=== PATIENT | female | born 1955 | race Caucasian/White ===

== ENCOUNTER → 2016-06-28 | Outpatient (CLI) | payer OTHER ==
[~2016-06-28] MED LIST: ACET-1256 PO; ACET-24 PO; AMLO-114 PO; ASPCH81X PO; ASPEC325 PO; ASPEC81 PO; ATOR-26 PO; CLC100 PO; GADAVIST IV PRN; GLC500 PO; INSDGI SC; LISI-725 PO; LVMI SQ; MULT-506 PO; NORT10CA2 PO; NVLGIPEN SQ; ONDA8TAB6 PO; OXYSR10 PO; PLV75 PO; POLY150C4 PO; PRAM0.129 PO; PRLSR20 PO; RXC5 PO; TRAM-10 PO; TRIA37.5 PO; [UNRECOGNIZED DRUG - OTHER] PO
--- NOTE | 2016-06-28 18:41 | DIAGNOSTIC IMAGING REPORT ---
MRI OF THE BRAIN WITHOUT AND WITH IV CONTRAST CLINICAL HISTORY: Left pontine stroke COMPARISON STUDY: 02/24/2016 TECHNIQUE: MRI of the brain was performed from the vertex to the skull base utilizing various T1 and T2 weighted sequences. Following the IV administration of 9 mL of Gadavist contrast, additional enhanced images were obtained. FINDINGS: Sagittal T1, axial diffusion, proton density and T2 weighted axial, coronal FLAIR, and pre and post axial T1-weighted images were acquired. These were supplemented with post gadolinium coronal T1 weighted images. No intra or extra-axial mass lesions are visualized. There is a 3 mm focus of increased signal on diffusion-weighted imaging involving the anterior medulla. A corresponding focus of decreased signal is not identified on the ADC map. The findings may represent T2 shine through from Wallerian degeneration.. There is no evidence of ventricular dilatation. Proton density T2-weighted and FLAIR images reveal scattered foci of increased T2 signal within the white matter, likely on a small vessel basis. There is a focus of increased T2 signal within the left central catalina measuring 12 x 5 mm. The findings are consistent with the patient's previously identified left pontine infarct. 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 There is no evidence of pathologic enhancement. There are inflammatory changes within the left maxillary sinus. IMPRESSION: 1. No evidence of intracranial mass 2. No evidence of acute or subacute infarction 3. Expected evolutionary changes of the previously identified left pontine infarct. 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 06/28/2016 6:40 PM Dictated Date/Time: 06/28/2016 6:34 PM
== END | disposition home or self-care (01) ==
LOC: C.MRI 16:37
PROVIDERS: ATTEND Internal Medicine
DX: I63.50 Cerebral infarction due to unspecified occlusion or stenosis of unspecified cerebral artery (principal); I69.359 Hemiplegia and hemiparesis following cerebral infarction affecting unspecified side

== ENCOUNTER 2017-01-09 04:55 | Inpatient (IN) | payer OTHER ==
--- NOTE | 2016-12-10 10:05 | HISTORY & PHYSICAL EXAMINATION ---
DATE OF ADMISSION: 01/09/2017 PROCEDURE: Right knee replacement. HISTORY OF PRESENT ILLNESS: Shana is a pleasant 61-year-old female who presents today for preop evaluation prior to right knee replacement. She states she has been having pain in this knee for many years now, which has gradually worsened, has gotten to the point it is affecting his daily activities including walking, standing, going up and down steps. She has tried and failed conservative measures including oral anti-inflammatories, physical therapy, ambulates with a cane, sometimes walker, as well as several series of viscosupplementation including Euflexxa and Synvisc-One. She has also had previous cortisone injections. At this point in time, has failed conservative measures and would like to proceed with a right knee replacement. PAST MEDICAL HISTORY: 1. Hypertension. 2. High cholesterol. 3. History of stroke, has seen her neurologist through [facility] and has been cleared for upcoming surgery. 4. Diabetes. 5. GERD. 6. Obesity. ALLERGIES: No known drug allergies. CURRENT MEDICATIONS: 1. Zestril 20 mg daily. 2. Metformin 1000 mg b.i.d. 3. Atorvastatin 80 mg daily. 4. Dyazide 37.5/25 mg daily. 5. Norvasc 10 mg daily. 6. Nortriptyline 10 mg at night. 7. Aspirin 81 mg daily. 8. Centrum daily. 9. Tylenol as needed. 10. NovoLog sliding scale at breakfast. PAST SURGICAL HISTORY: 1. Tubal ligation. 2. Hysterectomy. FAMILY HISTORY: Noncontributory. SOCIAL HISTORY: The patient is and lives in a 2-story home, has approximately 14 stairs. She is on long-term disability. Denies a history of smoking or tobacco use. No alcohol consumption. REVIEW OF SYSTEMS: Otherwise negative. Please see HPI for pertinent positives. PHYSICAL EXAMINATION: GENERAL: Anthony 61-year-old female in no acute distress, alert and oriented x3. She is 5 feet 4 inches, weighs 198 pounds. VITAL SIGNS: Blood pressure is 134/76, pulse 90, O2 sats 98%. HEENT: Normocephalic, atraumatic. CARDIAC: Regular rate and rhythm. No murmurs or gallops appreciated. Resting pulse 90 beats per minute. LUNGS: Clear to auscultation without rales or wheeze bilaterally. ABDOMEN: Soft, nontender. Bowel sounds present. EXTREMITIES: Right lower extremity is neurovascularly intact. Calves are soft and nontender. DP pulse +2. Overall has varus alignment. Has positive crepitation with motion, range of motion is 0/5/110. Knee is ligamentously stable. Has diffuse tenderness to the knee which is greatest over the medial compartment. IMAGING: Reviewed of the right knee show findings consistent with degenerative joint disease including joint space narrowing, subchondral sclerosis, osteophyte formation noted, has varus alignment on x-ray with complete loss of medial compartment. IMPRESSION: 1. Right knee degenerative joint disease. 2. Past medical history as outlined above. PLAN: Further care discussed with patient. At this point in time, has failed conservative measures and would like to proceed with a right knee replacement. Has medical clearance as scheduled with Dr. Hairston and has been cleared by her neurologist with a history of stroke. We will plan on discharge home with home health physical therapy.
[2016-12-10 13:41] VITALS: BMI 34.0
--- NOTE | 2016-12-10 14:23 | PAT Medication Instructions ---
Service Date Dec 10, 2016. Current Home Medication List Acetaminophen (Tylenol), 500 MG PO Q6 PRN for Pain Amlodipine (Norvasc), 10 MG PO QAM Aspirin (Aspirin Chewable), 81 MG PO QAM Atorvastatin (Lipitor), 80 MG PO QAM Insulin Aspart (Novolog Flexpen), 5 UNITS SQ QAM Insulin Detemir (Levemir), 60 UNITS SQ QDD Lisinopril (Zestril), 20 MG PO QAM Metformin HCL (Glucophage *), 1,000 MG PO BID Multivitamin (Multivitamin), 1 TAB PO QAM Nortriptyline (Pamelor), 10 MG PO QAM Polysaccharide Iron Complex (Ferrex 150), 1 TAB PO QAM Pramipexole (Mirapex), 0.125-0.25 MG PO BID PRN for RESTLESS LEGS Triamterene/Hctz (Dyazide 37.5MG/25MG), 1 TAB PO BID Medication Instructions For Your Scheduled Surgery - Hold the following medications 48 hours prior to surgery: Metformin HCL (Glucophage *), 1,000 MG PO BID -The following medication may not be taken after NOON the day prior to surgery: Pramipexole (Mirapex), 0.125-0.25 MG PO BID PRN for RESTLESS LEGS - Hold the following medications the morning of surgery: Multivitamin (Multivitamin), 1 TAB PO QAM Polysaccharide Iron Complex (Ferrex 150), 1 TAB PO QAM Lisinopril (Zestril), 20 MG PO QAM Insulin Aspart (Novolog Flexpen), 5 UNITS SQ QAM Triamterene/Hctz (Dyazide 37.5MG/25MG), 1 TAB PO BID - Take the following medications the morning of surgery with a sip of water OTHERWISE NOTHING TO EAT OR DRINK AFTER MIDNIGHT: Amlodipine (Norvasc), 10 MG PO QAM Aspirin (Aspirin Chewable), 81 MG PO QAM Atorvastatin (Lipitor), 80 MG PO QAM Nortriptyline (Pamelor), 10 MG PO QAM Acetaminophen (Tylenol), 500 MG PO Q6 PRN for Pain (may take if needed up to 4 hours prior to surgery) - Take the following medications as scheduled the night before surgery: Triamterene/Hctz (Dyazide 37.5MG/25MG), 1 TAB PO BID Insulin Detemir (Levemir), 60 UNITS SQ QDD Acetaminophen (Tylenol), 500 MG PO Q6 PRN for Pain If you have any questions please call us at [phone] or [phone] or [phone]
[2016-12-10 15:18] LABS: BASO % 0.5 %; BASO ABS # 0.03 K/uL (0-0.2); COMPLETE YES; EOS % 0.6 %; HEMATOCRIT 33.4 % (37-47); IG% 0.2 %; LYMPH % 27.4 %; LYMPH ABS # 1.72 K/uL (1.2-3.4); MEAN CELL VOLUME 86.1 fL (80-100); MEAN CORPUSCULAR HEMOGLOBIN 28.4 pg (25-34); MEAN CORPUSCULAR HGB CONC 32.9 g/dl (32-36); MEAN PLATELET VOLUME 10.4 fL (7.4-10.4); MONO % 6.2 %; NEUT % 65.1 %; PLATELET COUNT 246 K/uL (130-400); RED BLOOD COUNT 3.88 M/uL (4.2-5.4); WHITE BLOOD COUNT 6.28 K/uL (4.8-10.8)
[2016-12-10 15:19] LABS: URINE APPEARANCE CLEAR (CLEAR); URINE BILIRUBIN NEG (NEG); URINE COLOR YELLOW; URINE NITRITE NEG (NEG); URINE SPECIFIC GRAVITY 1.022 (1.000-1.030); UROBILINOGEN NEG (NEG)
[2016-12-10 15:20] LABS: MANUAL MICROSCOPIC REQUIRED? NO; REVIEW REQ? NO
[2016-12-10 15:23] LABS: ESTIMATED AVERAGE GLUCOSE 206 mg/dl; HA1C FLAG Normal (Normal)
[2016-12-10 15:30] LABS: INR 0.9 (0.9-1.1); PARTIAL THROMBOPLASTIN RATIO 0.8; PROTHROMBIN TIME (PATIENT) 10.1 SECONDS (9.0-12.0)
[2016-12-10 16:22] LABS: BUN/CREATININE RATIO 25.7 (10-20); CALCIUM 9.3 mg/dl (8.5-10.1); CREATININE 1.3 mg/dl (0.60-1.20); POTASSIUM 5.1 mmol/L (3.5-5.1)
[~2017-01-09] VITALS: Ht 162.6 cm; Wt 91.0 kg
[2017-01-09] VITALS (9 sets, daily range): BP systolic 106–172; BP diastolic 67–92; PULSE 74–84; TEMP 36.3–36.9; O2SAT 91–100; Ht 162.6 cm; Wt 91.0 kg
[~2017-01-09 04:55] MED LIST changes: -ACET-24 PO; -ASPEC325 PO; -ASPEC81 PO; -CLC100 PO; -GADAVIST IV PRN; -INSDGI SC; -ONDA8TAB6 PO; -OXYSR10 PO; -PLV75 PO; -PRLSR20 PO; -RXC5 PO; -TRAM-10 PO; -[UNRECOGNIZED DRUG - OTHER] PO
[2017-01-09] MEDS ORDERED: CEFAZOLIN 2000 MG/60 ML D5W 60 ML IV SCH (06:00)
[2017-01-09] MEDS ORDERED: LACTATED RINGER'S 1000ML 1,000 ML IV SCH (06:00)
[2017-01-09] MEDS ORDERED: ROPIVACAINE 5MG/ML 30 ML 150 MG, BUPIVACAINE/EPINEPHR 0.5% MPF 30 ML, KETOROLAC TROMETH... INFIL SCH ×7 (06:00)
[2017-01-09] MEDS ORDERED: DEXAMETHASONE 4 MG TAB PO SCH (06:00)
[2017-01-09] MEDS ORDERED: LACTATED RINGER'S 1000ML IV SCH (06:00)
[2017-01-09] MEDS ORDERED: METOCLOPRAMIDE HCL 10 MG TAB PO SCH (06:00)
[2017-01-09] MEDS ORDERED: ACETAMINOPHEN 500 MG TAB PO SCH (06:00)
[2017-01-09] MEDS ORDERED: GABAPENTIN 300 MG CAP PO SCH (06:00)
[2017-01-09] MEDS ORDERED: LACTATED RINGER'S 1000ML 500 ML IV ONE (06:00)
[2017-01-09] MEDS ORDERED: CeleBREX 200 MG CAP PO SCH (06:00)
[2017-01-09] MEDS ORDERED: FAMOTIDINE 20 MG TAB PO SCH (06:00)
[2017-01-09] MEDS ORDERED: BUPIVACAINE 0.25% 30 ML VIAL ONE (06:22)
[2017-01-09] MEDS ORDERED: BUPIVACAINE 0.5 % 5 MG/1 ML PF 10ML VIAL ONE (06:22)
[2017-01-09] MEDS ORDERED: POVIDONE-IODINE OP SOLN 30 ML BTL ONE (06:28)
[2017-01-09] MEDS ORDERED: ORTHO JOINT ANESTHETIC ONE (06:28)
[2017-01-09] MEDS ORDERED: BACITRACIN 50000 UNIT VIAL ONE (06:28)
[2017-01-09] MEDS ORDERED: MIDAZOLAM HCL 1 MG/ML 2ML VIAL ONE (06:30)
[2017-01-09] MEDS ORDERED: PROPOFOL IV EMULSION 10 MG/ML 20 ML VIAL IV ONE (06:31)
[2017-01-09] MEDS ORDERED: FENTANYL CITRATE INJ 50 MCG/1 ML 2 ML VIAL ONE (06:31)
[2017-01-09] MEDS ORDERED: LIDOCAINE HCL 2% 2 ML VIAL (20MG/ML) ONE (06:31)
--- NOTE | 2017-01-09 07:01 | History & Physical Bridge Note ---
H&P Re-Evaluation Bridge Note: I have examined the patient, reviewed the History & Physical and in the interval since the performance of the History & Physical I have noted the following changes of clinical significance: No changes noted
[2017-01-09] MEDS ORDERED: ONDANSETRON INJ 2 MG/ML 2 ML VIAL ONE (07:36)
[2017-01-09] MEDS ORDERED: PHENYLEPHRINE HCL INJ 10 MG/ML VIAL ONE (07:36)
--- NOTE | 2017-01-09 08:29 | [facility] Operative Report ---
Operative Report Operative Date Jan 09, 2017. Pre-Operative Diagnosis Right Knee Degenerative Joint Disease Post-Operative Diagnosis Same as preop Procedure(s) Performed Right Total Knee Arthroplasty utilizing Nettles & Nephew journey 2 patient matched total knee arthroplasty size 4 femur 3 tibia 12 Carla [address] Brooks Marketing Underwriter Surgeon(s) Primo Butler PA-C Estimated Blood Loss 5 ml Findings Severe end-stage DJD with varus alignment varus shift and thrust bone loss tibia Nourse wants to conservative therapy Specimens A. Right Knee Bone and Tissue Complication(s) None Disposition Recovery Room / PACU Indications Severe end-stage DJD right knee with varus alignment subchondral cystic changes and tibial bone loss Description of Procedure After proper prepping and draping of the Right lower extremity anterior midline incision was made over the region of the extensor extensor mechanism after meticulous hemostasis was obtained and maintained in subcutaneous tissues a medial parapatellar incision was made The patella was subluxed lateralward the medial lateral gutter were cleaned from any hypertrophic synovitis and scar tissue of the distal femoral block was placed and the distal femoral osteotomy cut was made subsequently the chamfers anterior and posterior osteotomy cuts were made utilizing the 4-in-1 block the tibia was subsequently subluxed anteriorward medial and ateral meniscal remnants were excised in their entirety remnants of the anterior and posterior cruciate ligaments were excised in their entirety excellent exposure of the proximal tibia was obtained the tibial osteotomy guide was placed on the proximal tibial osteotomy cut was made once again the knee was irrigated with copious amounts of sterile saline solution the patella was subsequently everted lateralward thickened scar tissue around the patella was removed the patella was subsequently cut utilizing a freehand technique and was drilled prepared for final preparation and placement of patella socially flexion-extension gaps were checked and the equal and symmetric trials were placed to the appropriate femoral and tibial trials with poly-spacer being placed for equal flexion and extension gaps and full range of motion including extension to 0 and flexion to 140 the trial components after having been taken to recovery range of motion was subsequently removed meticulous hemostasis was obtained and maintained subsequently a knee block injection of joint cocktail including ropivacaine 0.5% 150 mg. Bupivacaine 0.5 % epinephrine 1-200,030 mL's toradol 30 mg dexamethasone 4 mg ketamine 10 mg clonidine 100 micrograms normal saline solution 30 mg was infiltrated into the soft tissues of the posterior knee medial lateral gutters and periosteal synovium special attention was paid to protect neurovascular structures at all times subsequently trial components having been removed the knee was irrigated with sterile saline solution. debris was removed the proximal tibia was subsequently prepared and was made ready for the placement of the tibial component tibial component was also cemented and tamped into position the femoral component was subsequently placed and cemented in the position the patellar component was subsequently cemented in position because hemostasis once again obtained and maintained wound having been thoroughly irrigated with debridement and debridement lavage was performed as well as a medial parapatellar incision closed with #1 Vicryl in interrupted fashion subcutaneous was closed with #2 Vicryl skin was closed with skin clips. PA-C was necessary for prepping and drapping as well as wound closure of deep fascia Sub cutaneous tissue and skin and was necessary for the case. A sterile compressive dressing was placed patient was taken to recovery in stable condition of report dictated by Todd I attest to the content of the Intraoperative Record and any orders documented therein. Any exceptions are noted below. I attest to the content of the Intraoperative Record and any orders documented therein. Any exceptions are noted below.
[2017-01-09] MEDS ORDERED: ALUMINUM/MAGNESIUM/SIMETH (MAALOX MAX) 30 ML UDC PO PRN (09:15)
[2017-01-09] MEDS ORDERED: SOD PHOSPHATE/SOD BIPHOSPHATE ENEMA 132 ML BTL PR PRN (09:15)
[2017-01-09] MEDS ORDERED: BISACODYL 10 MG SUPP PR PRN (09:15)
[2017-01-09] MEDS ORDERED: ONDANSETRON INJ 2 MG/ML 2 ML VIAL IV PRN (09:15)
[2017-01-09] MEDS ORDERED: MoRPHine SULFATE 2 MG/ML CARP IV PRN (09:15)
[2017-01-09] MEDS ORDERED: ZOLPIDEM TARTRATE 5 MG TAB PO PRN (09:15)
[2017-01-09] MEDS ORDERED: MAGNESIUM HYDROXIDE SUSP 30 ML UDC PO PRN (09:15)
[2017-01-09] MEDS ORDERED: PHARMACY GLYCEMIC MGMT CONSULT PRN (09:34)
--- NOTE | 2017-01-09 09:41 | Anesthesiology Progress Note ---
Anesthesia Post Op Note Date & Time Jan 09, 2017 at 09:41 Vital Signs Pain Intensity: 0 Vital Signs Past 12 Hours Date Time Temp Pulse Resp B/P (MAP) Pulse Ox O2 Delivery O2 Flow Rate FiO2 01/09/17 09:35 77 16 125/62 98 Nasal Cannula 2 01/09/17 09:25 36.6 85 16 119/63 98 Nasal Cannula 2 01/09/17 09:15 86 16 116/56 100 Oxymask 3 01/09/17 09:05 36.3 83 16 92/69 100 Oxymask 5 01/09/17 05:43 36.9 84 20 172/79 100 Room Air Notes Mental Status: alert / awake / arousable, participated in evaluation Pt Amnestic to Procedure: Yes Nausea / Vomiting: adequately controlled Pain: adequately controlled Airway Patency, RR, SpO2: stable & adequate BP & HR: stable & adequate Hydration State: stable & adequate Neuraxial Anesthesia: was administered, sensory block is resolving Anesthetic Complications: no major complications apparent
[2017-01-09] MEDS ORDERED: EpHEDrine SULFATE INJ 50 MG/ML AMP IV PRN (09:45)
[2017-01-09] MEDS ORDERED: ATROPINE SULFATE 0.1 MG/ML 5ML SYR IV PRN (09:45)
[2017-01-09] MEDS ORDERED: MoRPHine SULFATE 4 MG/ML 1 ML CARP\\VIAL IV PRN (09:45)
[2017-01-09] MEDS ORDERED: MoRPHine SULFATE 10 MG/ML CARP/VIAL IV PRN (09:45)
--- NOTE | 2017-01-09 09:47 | DIAGNOSTIC IMAGING REPORT ---
RIGHT KNEE 1 OR 2 VIEWS ROUTINE CLINICAL HISTORY: AP/LATERAL IN PACU RIGHT KNEE Right COMPARISON: None. DISCUSSION: Total right knee arthroplasty. Good contact between prosthetic and underlying bone. Expected soft tissue postoperative change IMPRESSION: Anatomic alignment status post total right knee arthroplasty The above report was generated using voice recognition software. It may contain grammatical, syntax or spelling errors. Electronically signed by: Primo Fernando M.D. 01/09/2017 9:45 AM Dictated Date/Time: 01/09/2017 9:43 AM
--- NOTE | 2017-01-09 10:12 | Pharmacy Progress Note ---
Glycemic Control Intl Consult Date of Service Jan 09, 2017. Scope Glycemic Pharmacist consulted by Kodak Butler PA-C on 01/09/17 for glycemic control and to write orders per [facility] inpatient glycemic control protocol Objective Weight (Kilograms): 91.00 Accuchecks BSG (last 24hrs): Test 01/09/17 05:19 01/09/17 09:10 Bedside Glucose 90 mg/dl (70-90) 154 mg/dl (70-90) Recent Pertinent Medications Outpatient Anti-diabetic Regimen: * Levemir 60 units with dinner + Novolog 5 units with breakfast * Metformin 1000 mg PO BID * A1c = 8.8 % 12/10/16 Risk Factors for Insulin Resistance: * Steroids: Orthomix + Dexamethasone 8 mg PO pre-op * Infection: Ancef bhumi-op * Recent Surgery: POD #0 s/p R-TKA * Diet: T2DM Assessment & Plan ASSESSMENT: * 89 yr old T2DM female admitted for R-TKA. * Home regimen consists of metformin + 65 units of insulin (mostly basal insulin - 60 units) with less than adequate control evidenced by A1c of 8.8% * Will re-distribute regimen to 50% basal/50% bolus * 65 units -> 32 units of basal, CF/CR 25/8 * will slightly increase basal insulin for POD #0 * will tighten CF/CR for POD #0 since patient received pre op steroid * ADA & AACE recommend a goal blood sugar range 140-180 mg/dl for the majority of critically ill & non-critically ill patients. However, more stringent targets may be selected in individual cases. Will utilize more stringent goal of 110-140mg/dl based on patient age & comorbidities. Additionally, tighter glycemic control is warranted to facilitate wound/infection healing. PLAN FOR INPATIENT GLYCEMIC CONTROL: * Holding outpatient oral diabetes medications * Lantus 35-40 units SQ with dinner * 35 units for BSG less than 140 mg/dL * 40 units for BSG 140 mg/dL or more * Correctional Insulin with NOVOLOG per scale ACHS * Goal Range: Low 110 mg/dL - High 140 mg/dL * Correction Factor: 20 mg/dL/unit * Nutritional / Prandial insulin per carb ratio of 1 unit per 6 grams CHO consumed * add overnight checks with coverage at 00 and 04 * Please note that the plan above was derived based on current level of insulin resistance and hospital stress. These recommendations are appropriate for inpatient admission only. Plan of care upon discharge will need to be reassessed to avoid potential outpatient hypo/hyperglycemia. Thank you.
[2017-01-09] MEDS ORDERED: DEXTROSE 50% 50 ML SYR IV PRN (11:30)
[2017-01-09] MEDS ORDERED: GLUCAGON FOR INJ 1 MG VIAL SQ PRN (11:30)
[2017-01-09] MEDS ORDERED: GLUCOSE 10 TABS/TUBE PO PRN (11:30)
[2017-01-09] MEDS ORDERED: GLUCOSE 40% GEL 15 GM TUBE PO PRN (11:30)
[2017-01-09] MEDS: SODIUM CHLORIDE 0.9% 1000ML 1,000 ML IV SCH ×2 (12:50→18:45)
[2017-01-09] MEDS: INSULIN ASPART 100 UNITS/ML 3 ML PEN SC SCH ×3 (12:53→21:59)
[2017-01-09] MEDS: ACETAMINOPHEN 500 MG TAB PO SCH ×2 (14:02→21:58)
[2017-01-09] MEDS: CEFAZOLIN IV 2,000 MG in DEXTROSE 5% 50ML 50 ML IV SCH ×2 (14:38→21:57)
[2017-01-09] MEDS ORDERED: INFLUENZA ADMINISTRATION CHARGE ONE (14:45)
[2017-01-09] MEDS ORDERED: INFLUENZA VIRUS QUAD VACCINE 0.5 ML SYR IM. ONE (14:45)
[2017-01-09] MEDS: OXYCODONE HCL IR 5 MG TAB (IMMEDIATE RELEASE) PO PRN (14:52)
[2017-01-09] MEDS: INSULIN GLARGINE SOLOSTAR 100 UNITS/ML 3 ML PEN SC SCH (18:42)
[2017-01-09] MEDS: SENNA 8.6 MG TAB PO SCH (20:35)
[2017-01-09] MEDS: OXYCODONE HCL 10 MG TABCR (OXYCONTIN) PO SCH (20:35)
[2017-01-09] MEDS: DOCUSATE SODIUM 100 MG CAP PO SCH (20:36)
[2017-01-09] MEDS: ASPIRIN 81 MG ECTAB PO SCH (20:36)
[2017-01-09] MEDS: PRAMIPEXOLE DIHYDROCHLORIDE 0.25MG TAB PO PRN (21:57)
[2017-01-10] MEDS: INSULIN ASPART 100 UNITS/ML 3 ML PEN SC SCH ×7 (00:04→23:38)
[2017-01-10] MEDS: OXYCODONE HCL IR 5 MG TAB (IMMEDIATE RELEASE) PO PRN ×5 (01:21→21:01)
[2017-01-10] MEDS ORDERED: INSULIN ASPART 100 UNITS/ML 3 ML PEN SC SCH (02:00)
[2017-01-10 04:00] VITALS: BP 125/62; PULSE 68; TEMP 36.5; O2SAT 100
[2017-01-10] MEDS: ACETAMINOPHEN 500 MG TAB PO SCH ×3 (05:01→21:39)
[2017-01-10] MEDS: SODIUM CHLORIDE 0.9% 1000ML 1,000 ML IV SCH (05:23)
[2017-01-10 06:36] LABS: HEMATOCRIT 25.7 % (37-47); MEAN CELL VOLUME 86.5 fL (80-100); MEAN CORPUSCULAR HEMOGLOBIN 27.6 pg (25-34); MEAN CORPUSCULAR HGB CONC 31.9 g/dl (32-36); PLATELET COUNT 266 K/uL (130-400); RED BLOOD COUNT 2.97 M/uL (4.2-5.4); WHITE BLOOD COUNT 11.75 K/uL (4.8-10.8)
[2017-01-10 06:47] LABS: PROTHROMBIN TIME (PATIENT) 10.5 SECONDS (9.0-12.0)
[2017-01-10 07:21] LABS: CALCIUM 8.6 mg/dl (8.5-10.1); CREATININE 1.3 mg/dl (0.60-1.20); POTASSIUM 5.4 mmol/L (3.5-5.1)
--- NOTE | 2017-01-10 08:21 | Orthopedic Progress Note ---
Orthopedic Progress Note Date of Service Jan 10, 2017. Subjective Post OP Day: 1 (s/p Right TKA) Reports: feeling well, pain controlled w PO medications, Denies: complaints, chest pain, SOB, nausea / vomiting, light headedness, calf pain Objective calves soft nontender, N/V intact, capillary refill less than 2 sec., dressing C /D/I, A&O x3, toes mobile, hemovac drainage (185cc/ 8 hours) Date Time Temp Pulse Resp B/P (MAP) Pulse Ox O2 Delivery O2 Flow Rate FiO2 01/10/17 04:00 36.5 68 16 125/62 (83) 100 Room Air 01/10/17 00:03 Room Air 01/09/17 23:00 36.6 75 18 131/69 (89) 96 Room Air 01/09/17 19:23 36.7 74 18 127/68 (87) 94 Room Air 01/09/17 15:36 36.3 79 18 153/78 (103) 91 Nasal Cannula 01/09/17 15:30 Room Air 01/09/17 13:05 36.4 78 18 129/82 (98) 99 Nasal Cannula 2.0 01/09/17 12:08 36.3 77 18 106/68 (81) 98 Nasal Cannula 2.0 01/09/17 11:08 36.7 78 19 129/78 (95) 97 Nasal Cannula 2.0 01/09/17 10:48 36.4 76 18 138/92 (107) 95 Nasal Cannula 2.0 01/09/17 10:15 36.7 82 16 115/67 (83) 97 Nasal Cannula 2.0 01/09/17 10:15 Nasal Cannula 2.0 01/09/17 10:15 Nasal Cannula 2.0 97 01/09/17 10:00 83 16 99/65 99 Nasal Cannula 2 01/09/17 09:45 81 16 119/67 97 Nasal Cannula 2 01/09/17 09:35 77 16 125/62 98 Nasal Cannula 2 01/09/17 09:25 36.6 85 16 119/63 98 Nasal Cannula 2 01/09/17 09:15 86 16 116/56 100 Oxymask 3 01/09/17 09:05 36.3 83 16 92/69 100 Oxymask 5 Laboratory Results 24 Hours: Test 01/10/17 06:04 Hematocrit 25.7 % Hemoglobin 8.2 g/dL Prothromb Time International Ratio 1.0 Prothrombin Time 10.5 SECONDS Assessment & Plan Assessment: POD #1 s/p Right TKA -pt/ot -dvt proph with DIPESH/SCD/ASA -plan on dc home with HHPT when stable 1. Hypertension. 2. High cholesterol. 3. History of stroke, on ASA at home 4. Diabetes. 5. GERD. 6. Obesity. Discharge Planning Discharge Planning: home with home health DVT Prophylaxis: TEDs, SCDs, ASA Therapy: Physical Therapy
--- NOTE | 2017-01-10 08:22 | Discharge Instructions ---
Discharge Instructions Date of Service Jan 10, 2017. Admission Reason for Admission: Right Knee Degenerative Joint Disease Discharge Discharge Diagnosis / Problem: Right TKA Discharge Goals Goal(s): Decrease discomfort, Improve function, Increase independence Activity Recommendations Activity Limitations: as noted below Weightbearing Status: Right weightbearing (as tolerated) . Instructions / Follow-Up Instructions / Follow-Up ACTIVITY RECOMMENDATIONS: SELF CARE INSTRUCTIONS AFTER TOTAL KNEE REPLACEMENT A. You may need to continue a physical therapy program after discharge from the hospital. There are several options available to you. Your doctor will assist you in selecting the best one for you. 1. An out-patient facility 2 to 3 times a week for therapy or home therapy. 2. Continue working on all exercises taught to you in the hospital. Your goals should be to increase bending of your knee to 90 degrees and beyond and to fully straighten your knee. B. You may progress at your own pace from walking with a walker or crutches to a cane; then to no assistive devices. C. Make walking a part of your daily routine. Be up as much as comfortable with rest periods throughout the day. Rest with leg elevation is very important. Use the ice wrap frequently for the first 3-4 weeks. D. There are no restrictions on activities. You may ride in a car, shop, participate in souvenir street vendor and all social activities. E. Wear the long elastic stockings (DIPESH hose) 20 hours a day for 2 weeks after surgery. They can be removed several times a day for laundering and for a bath. F. You may shower, no tub baths until cleared by your doctor. SPECIAL CARE INSTRUCTIONS: VERY IMPORTANT TO READ AND REVIEW A. There are a few signs you need to watch for after you are home. Call [facility] if you notice any of the followin. Increased severe knee pain. Some pain is expected especially when you exercise. 2. Increased swelling in your leg or knee; pain or swelling of the calf muscle in either lower leg. 3. Any fluid drainage from the incision. 4. Shortness of breath or chest pain. B. Please call [facility] at if you have any concerns or questions about your operation or recovery. The doctor or his nurse will return your call promptly. C. You must take antibiotics before dental work, bladder, bowel or other surgery. Your doctor will provide you with a permanent care to carry describing this precaution. IMPORTANT: * REMEMBER TO TAKE ASPIRIN, 81 MG, TWICE DAILY FOR 4 WEEKS UNLESS OTHERWISE DIRECTED. THIS IS YOUR BLOOD THINNER. * HIGH RISK PATIENTS MAY BE PRESCRIBED A STRONGER BLOOD THINNER. THIS WILL BE PROVIDED AT DISCHARGE. * CALL IF INCREASED PAIN, REDNESS, DRAINAGE OR FEVER GREATER THAT 101. * WEAR DIPESH HOSE 20 HOURS PER DAY FOR 2 WEEKS. * DERMABOND Prineo- This is a mesh tape dressing that is covered with glue. It should remain in place until the incision is properly healed, usually 10-14 days. This dressing is designed to naturally slough off. You may trim the excess mesh tape as it peels off. Incision may be briefly wet in a shower. Dry immediately by blotting with a clean, dry towel. Do not bath or swim until instructed by your doctor. Do not scratch, rub, or pick at the dressing. Do not apply any topical ointments or lotions until dressing is completely removed and/or instructed by your doctor. There may be a small piece of suture material at one end of your incision. Do not pull or trim this. If it is bothersome or catching on clothing, you may cover it with a band-aid. FOLLOW UP VISIT: If appointment is not already scheduled: Please call [facility] to make a follow-up appointment for 2 weeks after your surgery at . Current Hospital Diet Patient's current hospital diet: Diabetes Type 2 Diet Discharge Diet Recommended Diet: Diabetes Type 2 Diet Procedures Procedures Performed: Right Total Knee Arthroplasty utilizing Nettles & Nephew journey 2 patient matched total knee arthroplasty size 4 femur 3 tibia 12 Carla 32 oval patella Pending Studies Studies pending at discharge: no Laboratory Results Hemoglobin A1c Test 12/10/16 15:04 Range/Units Estimated Average Glucose 206 mg/dl Hemoglobin A1c 8.8 H 4.5-5.6 % Medical Emergencies . Who to Call and When: Medical Emergencies: If at any time you feel your situation is an emergency, please call 911 immediately. . Non-Emergent Contact Non-Emergency issues call your: Primary Care Provider, Surgeon . "Provider Documentation" section prepared by Primo Butler. . VTE Core Measure Inpt VTE Proph given/why not?: Other Anticoagulation (ASA 81mg po bid x 1 month ), T.E.D. Stockings, SCD's [place] Drug Monitoring Program Search Results: patient reviewed within database, no issues identified
[2017-01-10] MEDS ORDERED: INSULIN GLARGINE SOLOSTAR 100 UNITS/ML 3 ML PEN SC SCH (09:00)
[2017-01-10] MEDS: ASPIRIN 81 MG ECTAB PO SCH ×2 (09:10→21:02)
[2017-01-10] MEDS: IRON COMPLEX POLYSACCHARIDE W/VIT C 150 MG CAP PO SCH (09:10)
[2017-01-10] MEDS: PANTOprazole SOD 40 MG TAB PO SCH (09:10)
[2017-01-10] MEDS: ATORVASTATIN 40 MG TAB PO SCH (09:11)
[2017-01-10] MEDS: NORTRIPTYLINE HCL 10 MG CAP PO SCH (09:11)
[2017-01-10] MEDS: DOCUSATE SODIUM 100 MG CAP PO SCH ×2 (09:11→21:02)
[2017-01-10] MEDS: AMLODIPINE BESYLATE 5 MG TAB PO SCH (09:11)
[2017-01-10] MEDS: MULTIVITAMIN TAB PO SCH (09:11)
[2017-01-10] MEDS: OXYCODONE HCL 10 MG TABCR (OXYCONTIN) PO SCH ×2 (09:15→21:00)
--- NOTE | 2017-01-10 09:36 | Anesthesiology Progress Note ---
Anesthesia Post Op Note Date & Time Jan 10, 2017 at 09:35 Vital Signs Pain Intensity: 7.0 Vital Signs Past 12 Hours Date Time Temp Pulse Resp B/P (MAP) Pulse Ox O2 Delivery O2 Flow Rate FiO2 01/10/17 04:00 36.5 68 16 125/62 (83) 100 Room Air 01/10/17 00:03 Room Air 01/09/17 23:00 36.6 75 18 131/69 (89) 96 Room Air Notes Mental Status: alert / awake / arousable, participated in evaluation Pt Amnestic to Procedure: Yes Nausea / Vomiting: adequately controlled Pain: adequately controlled Airway Patency, RR, SpO2: stable & adequate BP & HR: stable & adequate Hydration State: stable & adequate Neuraxial Anesthesia: sensory block resolved Anesthetic Complications: no major complications apparent
[2017-01-10 10:01] VITALS: BP 143/71; PULSE 73; O2SAT 100
--- NOTE | 2017-01-10 10:39 | Pharmacy Progress Note ---
Glycemic Control Progress Note Date of Service Jan 10, 2017. Scope Glycemic Pharmacist consulted for glycemic control to write orders per [facility] inpatient glycemic control protocol. Objective Accuchecks BSG (last 24hrs): Test 01/09/17 11:05 01/10/17 04:24 01/10/17 06:04 01/10/17 07:57 Bedside Glucose 209 mg/dl (70-90) 134 mg/dl (70-90) 233 mg/dl (70-90) Random Glucose 137 mg/dl (70-99) Recent Pertinent Medications Risk Factors for Insulin Resistance: * Steroids: Orthomix + Dexamethasone 8 mg PO pre-op * Infection: Ancef bhumi-op * Recent Surgery: POD #1 s/p R-TKA * Diet: T2DM Outpatient Anti-Diabetic Meds * Levemir 60 units with dinner + Novolog 5 units with breakfast * Metformin 1000 mg PO BID * A1c = 8.8 % 12/10/16 Assessment & Plan ASSESSMENT: * Please see 01/09/17 note for background, in short: * 89 yr old T2DM female POD#1 s/p R-TKA. * Patient received 77 units of insulin since surgery * 40 units of basal * 37 units of correctional/prandial * BSGs ranged from 90 - 338 mg/dL over the past 24 hours * Changes needed to insulin regimen: * Fasting BSG of 233 mg/dL is above goal. Will give additional Levemir this morning, then resume HS dosing since this is how he takes basal insulin at home. Continue to titrate based on BSG (scale increased 12.5-25%). * Prandial BSGs elevated. Tighten CF. PLAN FOR INPATIENT GLYCEMIC CONTROL: * Resume Metformin 1000 mg PO BID this evening * Basal insulin - increase * Levemir 10 units SQ this am * Levemir 35-40 units SQ with dinner * 35 units for BSG less than 140 mg/dL * 40 units for BSG 140 mg/dL or more * Correctional Insulin with NOVOLOG per scale ACHS - tighten * Goal Range: Low 110 mg/dL - High 140 mg/dL * Correction Factor: 18 mg/dL/unit * Nutritional / Prandial insulin per carb ratio of 1 unit per 6 grams CHO consumed * Continue overnight checks with coverage for tight control in post-op setting DISCHARGE RECOMMENDATIONS: * A1c of 8.8% (12/10/16) is less than adequate * Home insulin regimen is comprised of mostly basal insulin (60 units Lantus, 5 units Novolog with breakfast) * Consider adding Novolog with lunch and dinner also * Please note that the plan above was derived based on current level of insulin resistance and hospital stress. These recommendations are appropriate for inpatient admission only. Plan of care upon discharge will need to be reassessed to avoid potential outpatient hypo/hyperglycemia. Thank you.
[2017-01-10 11:47] VITALS: BP 151/72; PULSE 66; TEMP 36.7; O2SAT 100
[2017-01-10 15:17] VITALS: BP 100/70; PULSE 79; TEMP 36.7; O2SAT 100
[2017-01-10] MEDS: INSULIN GLARGINE SOLOSTAR 100 UNITS/ML 3 ML PEN SC SCH (18:26)
[2017-01-10] MEDS: METFORMIN HCL 500 MG TAB PO SCH (18:27)
[2017-01-10] MEDS: PRAMIPEXOLE DIHYDROCHLORIDE 0.25MG TAB PO PRN (21:01)
[2017-01-10] MEDS: SENNA 8.6 MG TAB PO SCH (21:03)
[2017-01-10 22:44] VITALS: BP 148/66; PULSE 91; TEMP 36.6; O2SAT 97
[2017-01-11] MEDS: OXYCODONE HCL IR 5 MG TAB (IMMEDIATE RELEASE) PO PRN ×3 (01:57→10:27)
[2017-01-11] MEDS: INSULIN ASPART 100 UNITS/ML 3 ML PEN SC SCH ×2 (04:00→08:00)
[2017-01-11] MEDS: ACETAMINOPHEN 500 MG TAB PO SCH (05:42)
--- NOTE | 2017-01-11 07:04 | Orthopedic Progress Note ---
Orthopedic Progress Note Date of Service Jan 11, 2017. Subjective Post OP Day: 2 Reports: feeling well, pain controlled w PO medications, Denies: complaints, chest pain, SOB, nausea / vomiting, light headedness, calf pain Objective calves soft nontender, N/V intact, capillary refill less than 2 sec., incision C /D/I, A&O x3, toes mobile Date Time Temp Pulse Resp B/P (MAP) Pulse Ox O2 Delivery O2 Flow Rate FiO2 01/10/17 23:15 Room Air 01/10/17 22:44 36.6 91 16 148/66 (93) 97 Room Air 01/10/17 15:20 Room Air 01/10/17 15:17 36.7 79 18 100/70 (80) 100 Room Air 01/10/17 11:47 36.7 66 18 151/72 (98) 100 Room Air 01/10/17 10:01 73 100 01/10/17 07:20 Room Air Assessment & Plan Assessment: POD #2 s/p Right TKA -pt/ot -dvt proph with DIPESH/SCD/ASA -plan on dc home with HHPT when stable, likely after PT today H/H stable, denies LH, dizzy 1. Hypertension. 2. High cholesterol. 3. History of stroke, on ASA at home 4. Diabetes. 5. GERD. 6. Obesity. Discharge Planning Discharge Planning: home with home health DVT Prophylaxis: TEDs, SCDs, ASA Therapy: Physical Therapy
[2017-01-11] MEDS ORDERED: ASPEC81 PO (07:07)
[2017-01-11] MEDS ORDERED: OXYSR10 PO (07:07)
[2017-01-11] MEDS ORDERED: RXC5 PO (07:07)
[2017-01-11] MEDS ORDERED: CLC100 PO (07:07)
[2017-01-11] MEDS ORDERED: ACET-24 PO (07:07)
[2017-01-11] MEDS ORDERED: ONDA8TAB6 PO (07:07)
--- NOTE | 2017-01-11 07:40 | Discharge Summary ---
Orthopedic Discharge Summary Admission Date/Reason Jan 09, 2017 at 06:45 Right Knee Degenerative Joint Disease. Discharge Date/Disposition Jan 11, 2017 Home with services Diagnosis Principal Diagnosis: right knee osteoarthritis Procedure(s) Performed Right Total Knee Arthroplasty utilizing Nettles & Nephew journey 2 patient matched total knee arthroplasty size 4 femur 3 tibia 12 Carla 32 oval patella Consultations NONE Medication Reconciliation New Medications: Ondansetron Hcl (Zofran) 8 Mg Tab 8 MG PO Q8 PRN for Nausea, #20 TAB Acetaminophen (Sb Non-Aspirin Extra Stre) 500 Mg Tab 1000 MG PO Q8H, #63 TAB Aspirin (Aspirin EC Low Dose) 81 Mg Ectab 81 MG PO BID for 30 Days, #60 TAB Docusate Sodium (Docusate Sodium) 100 Mg Cap 100 MG PO BID for 10 Days, #20 CAP Oxycodone HCl (Oxycontin) 10 Mg Tabcr 10 MG PO Q12, #20 Oxycodone HCl (Oxycodone HCl) 5 Mg Tab 5-10 MG PO Q4H PRN for Pain, #60 TAB Continued Medications: Amlodipine (Norvasc) 10 Mg Tab 10 MG PO QAM, TAB Atorvastatin (Lipitor) 80 Mg Tab 80 MG PO QAM Insulin Aspart (Novolog Flexpen) 100 Units/Ml Inj 5 UNITS SQ QAM Insulin Detemir (Levemir) 100 Units/Ml Inj 60 UNITS SQ QDD Lisinopril (Zestril) 20 Mg Tab 20 MG PO QAM, TAB Metformin HCL (Glucophage *) 1,000 Mg Tab 1000 MG PO BID, 0 Refills Multivitamin (Multivitamin) Tab 1 TAB PO QAM, TAB Nortriptyline (Pamelor) 10 Mg Cap 10 MG PO QAM, 0 Refills Polysaccharide Iron Complex (Ferrex 150) 150 Mg Cap 1 TAB PO QAM Pramipexole (Mirapex) 0.125 Mg Tab 0.125-0.25 MG PO BID PRN for RESTLESS LEGS TAKE 1 IN am AND 1OR 2 AT NIGHT Triamterene/Hctz (Dyazide 37.5MG/25MG) Cap 1 TAB PO BID, CAP Discontinued Medications: Acetaminophen (Tylenol) 500 Mg Tab 500 MG PO Q6 PRN for Pain, TAB Aspirin (Aspirin Chewable) 81 Mg Chew 81 MG PO QAM Admission Physical Exam As per Admitting History & Physical. Hospital Course Patient was a same day admission after undergoing a successful right TKA. she tolerated the procedure well. Post-operatively, her activity was progressed and well tolerated. Please refer to daily progress notes and PT notes for complete details. After exam on 01/11/17, patient felt to be stable for discharge home with HHPT. Patient will f/u in the office in 2 weeks for further evaluation including x-rays and incision check, sooner if having any issues or concerns. Below are pertinent labs/studies during their hospital stay: Last Resulted CBC 01/10/17 06:04 Last Resulted BMP 01/10/17 06:04 Last Vital Signs Documentation Date Time Temp Pulse Resp B/P (MAP) Pulse Ox O2 Delivery O2 Flow Rate FiO2 01/10/17 23:15 Room Air 01/10/17 22:44 36.6 91 16 148/66 (93) 97 01/09/17 13:05 2.0 01/09/17 10:15 97 Discharge Instructions ACTIVITY RECOMMENDATIONS: SELF CARE INSTRUCTIONS AFTER TOTAL KNEE REPLACEMENT A. You may need to continue a physical therapy program after discharge from the hospital. There are several options available to you. Your doctor will assist you in selecting the best one for you. 1. An out-patient facility 2 to 3 times a week for therapy or home therapy. 2. Continue working on all exercises taught to you in the hospital. Your goals should be to increase bending of your knee to 90 degrees and beyond and to fully straighten your knee. B. You may progress at your own pace from walking with a walker or crutches to a cane; then to no assistive devices. C. Make walking a part of your daily routine. Be up as much as comfortable with rest periods throughout the day. Rest with leg elevation is very important. Use the ice wrap frequently for the first 3-4 weeks. D. There are no restrictions on activities. You may ride in a car, shop, participate in facility attendant and all social activities. E. Wear the long elastic stockings (DIPESH hose) 20 hours a day for 2 weeks after surgery. They can be removed several times a day for laundering and for a bath. F. You may shower, no tub baths until cleared by your doctor. SPECIAL CARE INSTRUCTIONS: VERY IMPORTANT TO READ AND REVIEW A. There are a few signs you need to watch for after you are home. Call [facility] if you notice any of the followin. Increased severe knee pain. Some pain is expected especially when you exercise. 2. Increased swelling in your leg or knee; pain or swelling of the calf muscle in either lower leg. 3. Any fluid drainage from the incision. 4. Shortness of breath or chest pain. B. Please call [facility] at if you have any concerns or questions about your operation or recovery. The doctor or his nurse will return your call promptly. C. You must take antibiotics before dental work, bladder, bowel or other surgery. Your doctor will provide you with a permanent care to carry describing this precaution. IMPORTANT: * REMEMBER TO TAKE ASPIRIN, 81 MG, TWICE DAILY FOR 4 WEEKS UNLESS OTHERWISE DIRECTED. THIS IS YOUR BLOOD THINNER. * HIGH RISK PATIENTS MAY BE PRESCRIBED A STRONGER BLOOD THINNER. THIS WILL BE PROVIDED AT DISCHARGE. * CALL IF INCREASED PAIN, REDNESS, DRAINAGE OR FEVER GREATER THAT 101. * WEAR DIPESH HOSE 20 HOURS PER DAY FOR 2 WEEKS. * DERMABOND Prineo- This is a mesh tape dressing that is covered with glue. It should remain in place until the incision is properly healed, usually 10-14 days. This dressing is designed to naturally slough off. You may trim the excess mesh tape as it peels off. Incision may be briefly wet in a shower. Dry immediately by blotting with a clean, dry towel. Do not bath or swim until instructed by your doctor. Do not scratch, rub, or pick at the dressing. Do not apply any topical ointments or lotions until dressing is completely removed and/or instructed by your doctor. There may be a small piece of suture material at one end of your incision. Do not pull or trim this. If it is bothersome or catching on clothing, you may cover it with a band-aid. FOLLOW UP VISIT: If appointment is not already scheduled: Please call [facility] to make a follow-up appointment for 2 weeks after your surgery at .
[2017-01-11 07:42] VITALS: BP 150/73; PULSE 86; TEMP 36.8; O2SAT 98
[2017-01-11 08:37] VITALS: BP 150/73; PULSE 86; TEMP 36.8; O2SAT 98
[2017-01-11] MEDS: PANTOprazole SOD 40 MG TAB PO SCH (09:14)
[2017-01-11] MEDS: AMLODIPINE BESYLATE 5 MG TAB PO SCH (09:14)
[2017-01-11] MEDS: MULTIVITAMIN TAB PO SCH (09:14)
[2017-01-11] MEDS: NORTRIPTYLINE HCL 10 MG CAP PO SCH (09:14)
[2017-01-11] MEDS: ASPIRIN 81 MG ECTAB PO SCH (09:14)
[2017-01-11] MEDS: DOCUSATE SODIUM 100 MG CAP PO SCH (09:14)
[2017-01-11] MEDS: ATORVASTATIN 40 MG TAB PO SCH (09:14)
[2017-01-11] MEDS: METFORMIN HCL 500 MG TAB PO SCH (09:15)
[2017-01-11] MEDS: IRON COMPLEX POLYSACCHARIDE W/VIT C 150 MG CAP PO SCH (09:15)
[2017-01-11] MEDS: OXYCODONE HCL 10 MG TABCR (OXYCONTIN) PO SCH (09:20)
== END 2017-01-11 10:50 | disposition home health service (06) | DRG 470 ==
LOC: C.ACU 04:55 → C.3E 06:45 → EDBEDREQ 09:28 → ENRESERV 09:49
PROVIDERS: ADMIT Orthopaedic Surgery; ATTEND Orthopaedic Surgery
PROC: 0SRC0J9 Replacement of Right Knee Joint with Synthetic Substitute, Cemented, Open Approach (ICD-10-PCS; principal; 2017-01-09 07:00)
DX: M17.11 Unilateral primary osteoarthritis, right knee (principal); I12.9 Hypertensive chronic kidney disease with stage 1 through stage 4 chronic kidney disease, or unspecified chronic kidney disease; E66.9 Obesity, unspecified; E11.9 Type 2 diabetes mellitus without complications; K21.9 Gastro-esophageal reflux disease without esophagitis; N18.3 Chronic kidney disease, stage 3 (moderate); E78.00 Pure hypercholesterolemia, unspecified; R20.0 Anesthesia of skin; G50.0 Trigeminal neuralgia; G25.81 Restless legs syndrome; Z79.899 Other long term (current) drug therapy; Z79.84 Long term (current) use of oral hypoglycemic drugs; Z68.34 Body mass index [BMI] 34.0-34.9, adult; Z86.73 Personal history of transient ischemic attack (TIA), and cerebral infarction without residual deficits; Z79.82 Long term (current) use of aspirin; Z79.4 Long term (current) use of insulin

== ENCOUNTER 2018-04-29 05:16 | Inpatient (IN) ==
--- NOTE | 2018-03-31 08:43 | History & Physical Report ---
Date of Service March 31, 2018 Assessment & Plan (1) Arthritis of knee, left: Risks and benefits of procedure discussed in detail today, patient would like to proceed with a Left TKA @ [facility] as scheduled. will obtain medical clearance prior to surgery as well as obtain PATs at [facility]. Patient is on chronic coumadin, will need bridged with lovenox pre-op, instructions have been given to patient by the coumadin clinic, f/u 2 weeks post op for routine post- operative care and xray, sooner if having any problems. will make arrangements for HHPT at the time of discharge. History of Present Illness Chief Complaint: left knee pain Primary Care Provider: Gaby Vela DO Ms Mata is a 62 year old female who is here for a follow up of left knee pain , presents for pre-op evaluation prior to left total knee replacement on 04/29/[address] Brooks. She states that the symptoms have been chronic non-traumatic. The symptoms occur intermittently. The problem is unchanged. Currently the patient states that the symptoms are moderate-severe. The pain is described as aching, dull, throbbing and discomforting. The symptoms occur intermittently. She rates her current pain as 4/10. The symptoms are aggravated by ascending stairs, descending stairs, walking and weather changes. Shana states that the symptoms are relieved by no specific activity. In addition to left knee pain the patient is also experiencing limping, crepitus, stiffness and weakness. The patient has had a previous MRI. Patient is currently taking Lovenox until due to having colonoscopy and endoscopy tomorrow on 04/01/18 then she will resume her Coumadin. Patient has taken NSAIDS with little to no relief. has also had previous cortisone injections with no relief. Allergies Allergy/AdvReac Type Severity Reaction Status Date / Time celecoxib Allergy Unknown due to Verified 08/16/17 12:21 stroke unable to take NSAIDS (Non-Steroidal Allergy Unknown unable to Verified 08/16/17 12:21 Anti-Inflamma take due to stroke Home Medications Home Medications Medication Instructions Recorded Confirmed Type Nortriptyline (Pamelor) 10 mg PO QAM #0 02/07/11 History ATORVASTATIN (LIPITOR) 80 mg PO QAM #0 02/18/16 History Insulin Aspart (NOVOLOG FLEXPEN) 10 unit SUBCUT TID #0 02/18/16 History Pramipexole (Mirapex) 0.125 - 0.25 mg PO BID PRN #0 02/18/16 History Amlodipine (Norvasc) 10 mg PO QAM #0 tab 12/10/16 History Insulin Detemir (Levemir) 30 unit SUBCUT BID #0 12/10/16 History Lisinopril (Zestril) 20 mg PO QAM #0 tab 12/10/16 History POLYSACCHARIDE IRON COMPLEX 1 tab PO QAM #0 12/10/16 History (FERREX 150) Triamterene/Hctz (Dyazide 1 tab PO BID #0 cap 12/10/16 History 37.5MG/25MG) ASPIRIN (ASPIRIN CHEWABLE) 81 mg PO QAM #0 08/16/17 History Acetaminophen (Tylenol) 650 mg PO Q6 PRN #0 tab 08/16/17 History Acetaminophen/Codeine (Tylenol 1 tab PO DAILY PRN #0 tab 08/16/17 History W/Codeine #3) Estrogens, Conjugated (Premarin) 1 dose VAGINAL 2-3WK #0 08/16/17 History METFORMIN HCL (GLUCOPHAGE) 1,000 mg PO BID #0 tab 08/16/17 History Multivitamin 1 tab PO QAM #0 tab 08/16/17 History Past Med/Surg History Medical History Diabetes Hypertension Surgical History History of total right knee replacement (TKR) Social History marital status: marries Current Living Situation: Spouse Feels Safe at Home: Yes Hx Alcohol Use: No Hx Substance Use: No Review of Systems All systems reviewed & are unremarkable except as noted in HPI & below Physical Exam 2 Constitutional: WD/WN, vitals as above no acute distress Respiratory: normal respiratory effort, lungs clear to auscultation Cardiovascular: RRR, no murmur, no edema Gastrointestinal (Abdomen): normal bowel sounds, soft, nontender, no hepatosplenomegaly Musculoskeletal: Left Knee Physical Exam Findings Details Ankle ROM L * Active ROM - Factors: normal, Description: active pain free range of motion. Passive ROM - Factors: normal, Description: passive pain free range of motion. Hip ROM L * Active ROM - Factors: normal, Description: active pain free range of motion. Passive ROM - Factors: normal, Description: passive pain free range of motion. Knee ROM L * Active ROM - Flexion: 110 degrees, Extension: 3 degrees, Factors: pain, Description: active painful range of motion. Passive ROM - Flexion: 110 degrees , Extension: 3 degrees, Factors: pain, Description: passive painful range of motion. Strength LE Normal Strength Description - Normal lower extremity: Bilateral. Hip: Right: strength is normal, Left: strength is normal. Knee: Right: strength is normal, Left: strength is normal. Ankle/Foot: Right: strength is normal, Left: strength is normal. Knee * Inspection - Gait: limp. Alignment - Right: varus, Clinical, Left: varus. Ecchymosis - Right: none, Left: none. Effusion - Right: mild, Left: mild. Swelling - Right: mild. Maximum tenderness - Right: diffuse, Left: diffuse. Patella exam - Crepitation - Right: moderate, Left: moderate. Vera's - Left: Positive. [facility]'s - lateral - Right: Positive, Left: Positive. Tg's - medial - Right: Positive, Left: Positive. Knee Comments Calf SNT, DP+2 Knee Normal Inspection - Atrophy - Right: Absent, Left: Absent. Patella exam - Apprehension - Right: Negative. Vera's - Right: Negative. Valgus stress - Right: Negative , Left: Negative. Varus stress - Right: Negative, Left: Negative. Extensor lag - Right: Normal, Left: Normal. Neurovascular LE Normal Neurovascular examination including reflexes, sensation, and pulses is within normal limits. Results & Data Diagnostic Findings Left Knee X-ray: left knee series confirm advanced degenerative changes to the left knee, greatest medial compartments and patellofemoral joint with marked varus deformity. joint space narrowing, osteophyte formation and subchondral sclerosis. no acute bony pathology noted.
--- NOTE | 2018-04-07 10:48 | Anesthesiology Consultation ---
Date of Service April 07, 2018 Assessment & Plan Chart Review Chart Review: Acceptable Risk for Surgery Consults Requested none ASA ASA4 History Surgery Operation Date: 04/29/18 09:50 Proposed Procedures p Left Total Knee Arthroplasty - Kashif Brooks DO Height/Weight Height: 5 ft 4 in Weight: 92.87 kg Allergies Allergy/AdvReac Type Severity Reaction Status Date / Time celecoxib Allergy Unknown due to Verified 04/02/18 08:07 stroke unable to take NSAIDS (Non-Steroidal Allergy Unknown unable to Verified 04/02/18 08:07 Anti-Inflamma take due to stroke Medications Home Medications Medication Instructions Recorded Confirmed Last Taken Zantac 1 dose PO UD PRN 04/02/18 04/02/18 Unknown acetaminophen [Acetaminophen Extra 500 mg PO UD PRN 04/02/18 04/02/18 Unknown Strength] amlodipine 10 mg PO QAM 04/02/18 04/02/18 Unknown amoxicillin 500 mg PO UD PRN 04/02/18 04/02/18 Unknown atorvastatin 80 mg PO QAM 04/02/18 04/02/18 Unknown enoxaparin [Lovenox] 150 mg SUBCUT UD 04/02/18 04/02/18 Unknown hydrochlorothiazide 12.5 mg PO QAM 04/02/18 04/02/18 Unknown insulin aspart U-100 [Novolog 10 unit SUBCUT TID 04/02/18 04/02/18 Unknown U-100 Insulin aspart] insulin detemir U-100 [Levemir 31 unit SUBCUT BID 04/02/18 04/02/18 Unknown FlexTouch U-100 Insuln] lisinopril 10 mg PO QAM 04/02/18 04/02/18 Unknown metformin 1,000 mg PO BID 04/02/18 04/02/18 Unknown tnpqkcss-ddc-xuqk-FA-lutein 1 tab PO DAILY 04/02/18 04/02/18 Unknown [Centrum Silver Women] nortriptyline 10 mg PO QAM 04/02/18 04/02/18 Unknown pramipexole [Mirapex] 0.125 mg PO BID 04/02/18 04/02/18 Unknown warfarin [Coumadin] 5 mg PO UD 04/02/18 04/02/18 Unknown Past Medical History Medical History Afib DX FEB 2018/NO CARDIOVERSION Diabetes Heartburn OCC, OTC MED History of blood transfusion "IRON INFUSIONS" - FEB 2018 History of endoscopy History of hyperlipidemia History of hysterectomy Hypertension Nausea and vomiting after administration of anesthetic agent Restless leg syndrome Stroke 2 YRS AGO/[facility]IT[facility]/R SIDE AFFECTED FINE MOVEMENT REMAINS AFFECTED Past Surgical History Surgical History History of colonoscopy History of eye surgery R RETINA PROCEDURE History of total right knee replacement (TKR) History of tubal ligation Past Anesthesia History No Hx of Anesthesia Complications and No Family Hx of Anesthesia Complications History of PONV No Motion Sickness Screening History of Motion Sickness: No Social History Smoking Status: Never smoker Do You Dip or Chew Tobacco: No Hx Alcohol Use: Yes ([facility] [employer]) Hx Substance Use: No substance use type: does not use Exercise / Class Metabolic Activity III < 4 Walking/Shop/Light housework Testing Electrocardiogram Date: 03/31/18 Findings: + NSR @ (at 74) Chest X-Ray Date: 03/31/18 Findings: + NAD Other Testing [id number] Laboratory Results WBC: 4.08 Hc.2 Hct: 38.6 PLATELETS: 209 SODIUM: 139 POTASSIUM: 4.5 CHLORIDE: 109 CO2: 24 BUN:20 CREATININE: 1.05 GLUCOSE: 120 PT:12.7 PTT: 31.3 INR: 1.2 UA:neg TYPE AND SCREEN:
[~2018-04-29 05:16] MED LIST changes: -ACET-1256 PO; -AMLO-114 PO; -ASPCH81X PO; -ATOR-26 PO; -GLC500 PO; -LISI-725 PO; -LVMI SQ; -MULT-506 PO; -NORT10CA2 PO; -NVLGIPEN SQ; -POLY150C4 PO; -PRAM0.129 PO; +ROPIVACAINE 0.5% HCL/PF 150 MG, BUPIVACAINE 0.5% MPF 30 ML, EPINEPHrine 30MG/30ML (OR U... INFIL SCH; -TRIA37.5 PO
[2018-04-29] MEDS ORDERED: dexAMETHasone 4 MG TAB PO SCH (06:00)
[2018-04-29] MEDS ORDERED: ACETAMINOPHEN 500 MG TAB PO SCH (06:00)
[2018-04-29] MEDS ORDERED: TRANEXAMIC ACID 1,000 MG **IV Pre-op IV SCH (06:00)
[2018-04-29] MEDS ORDERED: GABAPENTIN 300 MG x 2 PO SCH (06:00)
[2018-04-29] MEDS ORDERED: FAMOTIDINE 20 MG TAB PO SCH (06:00)
[2018-04-29] MEDS ORDERED: SODIUM CHLORIDE 0.9% 1000ML IV SCH (06:00)
[2018-04-29] MEDS ORDERED: CeleBREX 200 MG CAP PO SCH (06:00)
[2018-04-29] MEDS ORDERED: CEFAZOLIN 2000MG 2,000 MG/15 ML SYR IV SCH (06:00)
[2018-04-29 06:16] LABS: Partial Thromboplastin Time 24.8 Seconds (21.0-31.0); Prothrombin Time 10.3 Seconds (9.0-12.0)
[2018-04-29] MEDS ORDERED: BUPIVACAINE 0.5 % 5 MG/1 ML PF 10ML VIAL ONE (06:23)
[2018-04-29] MEDS ORDERED: ROPIVACAINE 0.5% 5 MG/ML 30 ML VIAL ONE (06:23)
[2018-04-29] MEDS ORDERED: TRANEXAMIC ACID 1,000 MG **IV Intra-op IV SCH (06:30)
[2018-04-29] MEDS ORDERED: fentaNYL citrate 100 MCG/2 ML VIAL ONE (06:36)
[2018-04-29] MEDS ORDERED: LIDOCAINE HCL 2% 2 ML VIAL/AMP(20MG/ML) INFIL ONE (06:36)
[2018-04-29] MEDS ORDERED: MIDAZOLAM HCL 1 MG/ML 2ML VIAL ONE (06:36)
[2018-04-29] MEDS ORDERED: PROPOFOL IV EMULSION 10 MG/ML 20 ML VIAL IV ONE (06:36)
[2018-04-29] MEDS ORDERED: ONDANSETRON INJ 2 MG/ML 2 ML VIAL ONE (06:39)
--- NOTE | 2018-04-29 07:01 | History & Physical Bridge Note ---
Date of Service April 29, 2018 History & Physical Bridge Note I have examined the patient, reviewed the History & Physical and in the interval since the performance of the History & Physical I have noted the following changes of clinical significance: no changes noted
[2018-04-29] MEDS ORDERED: BACITRACIN INJ 50,000 UNIT VIAL ONE (07:07)
[2018-04-29] MEDS ORDERED: POVIDONE-IODINE OP SOLN 30 ML BTL ONE (07:07)
[2018-04-29] MEDS ORDERED: ePHEDrine sulfate 50 MG/ML AMP IV PRN (07:27)
[2018-04-29] MEDS ORDERED: METOPROLOL TARTRATE 1 MG/ML VIAL IV ONE (07:27)
[2018-04-29] MEDS ORDERED: ATROPINE SULFATE 0.1 MG/ML 10ML SYR IV PRN (07:27)
[2018-04-29] MEDS ORDERED: ONDANSETRON INJ 2 MG/ML 2 ML VIAL IV PRN ×2 (07:27→10:31)
[2018-04-29] MEDS ORDERED: fentaNYL citrate 100 MCG/2 ML VIAL IV PRN (07:27)
--- NOTE | 2018-04-29 08:22 | Operative Report ---
Post Operative Report Pre & Post Diagnosis Operation Date: 04/29/18 07:15 Pre-Op Diagnosis: Left Knee Osteoarthritis Post-Op Diagnosis: Left Knee Osteoarthritis Procedure Operation Date: 04/29/18 07:15 Actual Procedures p Left Total Knee Arthroplasty(Left) utilizing Nettles & Nephew journey 2 patient matched size 4 femur size 4 tibia size 11 polyethylene size 32 oval patella- Kashif Brooks DO Surgeon Kashif Brooks DO Clinic Manager Primo [facility] Estimated Blood Loss 10 Findings Consistent with Post-Op Diagnosis Patient presents with complaints of ongoing pain attributed to her left knee screws undergone successful right total knee arthroplasty presents today for left total knee arthroplasty surgeon no evidence of subchondral cystic changes marginal osteophytes [id number] eburnated bone with a moderate to large effusion varus alignment the patient failed attempts at conservative management presents for left total knee arthroplasty Specimens Bone and cartilage Drains Medium bore Hemovac Complications none Disposition Accompanied Patient To Recovery: No Disposition: Recovery Room Indications Patient presents for left total knee arthroplasty failed attempts at conservative management physical therapy anti-inflammatories relative rest activity modification intra-articular corticosteroid injections as well as Visco supplementations patient failed attempts at conservative management presents today for left total knee arthroplasty Description of Procedure After proper prepping and draping of the left lower extremity anterior midline incision was made over the region of the extensor extensor mechanism after meticulous hemostasis was obtained and maintained in subcutaneous tissues a medial parapatellar incision was made The patella was subluxed lateralward the medial lateral gutter were cleaned from any hypertrophic synovitis and scar tissue of the distal femoral block was placed and the distal femoral osteotomy cut was made subsequently the chamfers anterior and posterior osteotomy cuts were made utilizing the 4-in-1 block the tibia was subsequently subluxed anteriorward medial and ateral meniscal remnants were excised in their entirety remnants of the anterior and posterior cruciate ligaments were excised in their entirety excellent exposure of the proximal tibia was obtained the tibial osteotomy guide was placed on the proximal tibial osteotomy cut was made once again the knee was irrigated with copious amounts of sterile saline solution the patella was subsequently everted lateralward thickened scar tissue around the patella was removed the patella was subsequently cut utilizing a freehand technique and was drilled prepared for final preparation and placement of patella socially flexion-extension gaps were checked and the equal and symmetric trials were placed to the appropriate femoral and tibial trials with poly-spacer being placed for equal flexion and extension gaps and full range of motion including extension to 0 and flexion to 140 the trial components after having been taken to recovery range of motion was subsequently removed meticulous hemostasis was obtained and maintained subsequently a knee block injection of joint cocktail including ropivacaine 0.5% 150 mg. Bupivacaine 0.5 % epinephrine 1-200,030 mL's toradol 30 mg dexamethasone 4 mg ketamine 10 mg clonidine 100 micrograms normal saline solution 30 mg was infiltrated into the soft tissues of the posterior knee medial lateral gutters and periosteal synovium special attention was paid to protect neurovascular structures at all times subsequently trial components having been removed the knee was irrigated with sterile saline solution. debris was removed the proximal tibia was subsequently prepared and was made ready for the placement of the tibial component tibial component was also cemented and tamped into position the femoral component was subsequently placed and cemented in the position the patellar component was subsequently cemented in position because hemostasis once again obtained and maintained wound having been thoroughly irrigated with debridement and debridement lavage was performed as well as a medial parapatellar incision closed with #1 Vicryl in interrupted fashion subcutaneous was closed with #2 Vicryl skin was closed with skin clips. PA-C was necessary for prepping and drapping as well as wound closure of deep fascia Sub cutaneous tissue and skin and was necessary for the case. A sterile compressive dressing was placed patient was taken to recovery in stable condition of report dictated by Todd I attest to the content of the Intraoperative Record and any orders documented therein. Any exceptions are noted below. I attest to the content of the Intraoperative Record and any orders documented therein. Any exceptions are noted below.
--- NOTE | 2018-04-29 09:55 | XRay Report ---
LEFT KNEE 2 VIEWS History: Left total knee arthroplasty. Degenerative arthritis. Postop. FINDINGS: The patient is status post a left total knee arthroplasty. The hardware is intact. No fract ure or dislocation. Surgical drains are in place. IMPRESSION: Left total knee arthroplasty. No evidence for hardware complication. Electronically signed by: Cody Espinoza M.D. 04/29/2018 9:54 AM
--- NOTE | 2018-04-29 10:16 | Anesthesiology Progress Note ---
Date of Service April 29, 2018 Anesthesia Post Procedure Vital Signs Vital Signs: Temp Pulse Pulse Resp BP BP Pulse Ox 04/29/18 09:30 73 18 83 L 04/29/18 09:27 70 23 144/83 H 87 L 04/29/18 09:25 72 21 90 04/29/18 09:22 65 22 146/65 H 96 04/29/18 09:20 65 16 98 04/29/18 09:17 69 20 163/69 H 98 04/29/18 09:15 71 21 98 04/29/18 09:13 75 30 H 90 04/29/18 09:12 72 22 153/65 H 97 04/29/18 09:10 71 19 145/69 H 98 04/29/18 09:09 75 23 134/110 H 96 04/29/18 09:08 36.3 C L 75 20 145/69 H 97 04/29/18 06:13 37 C 70 20 192/99 H 97 Pain Intensity Left Knee: Pain Intensity: 3 Notes Mental Status: alert / awake / arousable and participated in evaluation Patient Amnestic to Procedure: Yes Nausea / Vomiting: adequately controlled Pain: adequately controlled Airway Patency, RR, SpO2: stable & adequate BP & HR: stable & adequate Hydration State: stable & adequate Neuraxial Anesthesia: was administered and sensory block is resolving Anesthetic Complications: no major complications apparent and Pt Satisfied with anesthetic care
[2018-04-29] MEDS ORDERED: MoRPHine SULFATE 2 MG/ML CARP IV PRN (10:31)
[2018-04-29] MEDS ORDERED: MAGNESIUM HYDROXIDE SUSP 30 ML UDC PO PRN (10:31)
[2018-04-29] MEDS ORDERED: ALUMINUM/MAGNESIUM SUSP 30 ML UDC PO PRN (10:31)
[2018-04-29] MEDS ORDERED: BISACODYL 10 MG SUPP PR PRN (10:31)
[2018-04-29] MEDS ORDERED: MoRPHine SULFATE 2 MG/ML CARP ONE (11:06)
[2018-04-29] MEDS ORDERED: GLUCOSE 10 TABS/TUBE PO PRN (11:11)
[2018-04-29] MEDS ORDERED: GLUCOSE 40% GEL 15 GM TUBE PO PRN (11:11)
[2018-04-29] MEDS ORDERED: CARBOHYDRATES FOR HYPOGLYCEMIA PO PRN (11:11)
[2018-04-29] MEDS ORDERED: DEXTROSE 50% 50 ML SYRINGE IV PRN (11:11)
[2018-04-29] MEDS ORDERED: GLUCAGON FOR INJ 1 MG VIAL SQ PRN (11:11)
[2018-04-29] MEDS ORDERED: PHARMACY GLYCEMIC MGMT CONSULT PRN (11:44)
[2018-04-29] MEDS ORDERED: INSULIN DETEMIR FLEXPEN/FLEX TOUCH 100 UNITS/ML 3ML SC STA (11:46)
[2018-04-29] MEDS: PRAMIPEXOLE DIHYDROCHLO 0.25 MG TAB PO SCH ×2 (11:51→21:16)
[2018-04-29] MEDS: OXYCODONE HCL IR 5 MG TAB (IMMEDIATE RELEASE) PO PRN ×2 (11:53→17:52)
[2018-04-29] MEDS: SODIUM CHLORIDE 0.9% 1000ML 1,000 ML IV SCH ×2 (11:55→22:36)
[2018-04-29] MEDS ORDERED: INSULIN ASPART 100 UNITS/ML 3 ML PEN SC SCH (12:00)
[2018-04-29] MEDS ORDERED: PROMETHAZINE HCL 25 MG in SODIUM CHLORIDE 0.9% 50 ML IV PRN (13:55)
[2018-04-29] MEDS ORDERED: PROMETHAZINE HCL 12.5 MG in SODIUM CHLORIDE 0.9% 50 ML IV PRN (13:57)
[2018-04-29] MEDS ORDERED: INSULIN ASPART U SQ SCH (14:00)
[2018-04-29] MEDS: ACETAMINOPHEN 500 MG TAB PO SCH ×2 (14:00→21:19)
[2018-04-29] MEDS: CEFAZOLIN 2000MG 2,000 MG/15 ML SYR IV SCH (14:01)
[2018-04-29] MEDS: ORTHO WARFARIN NOMOGRAM SCH (14:15)
--- NOTE | 2018-04-29 14:40 | Pharmacy Report ---
Glycemic Control Consultation - Date of Service April 29, 2018 - Scope Scope: Glycemic Pharmacist consulted by Dr Pirmo Butler on 04/29/18 for glycemic control and to write orders per [facility] inpatient glycemic control protocol - Objective Weight: 97 kg Accuchecks BSG (last 24hrs): 04/29/18 04/29/18 04/29/18 06:10 09:15 10:17 POC Glucose 131 H 202 H 222 H 04/29/18 12:17 POC Glucose 268 H - Recent Pertinent Medications Outpatient Anti-diabetic Regimen: * Novolog 10u TIDM, Levemir 31u BID, Metformin * A1c = 8.9 % 08/16/17 Risk Factors for Insulin Resistance: * Steroids:Pre-op DXM 8mg PO * Recent Surgery: POD 0 - Assessment & Plan Assessment & Plan: ASSESSMENT: * Ms. Mata is a 62yo F admitted for L TKA. Her most recent A1C is from July 2017. Will order an A1C for tomorrow, 04/30/18. She did receive 8mg PO DXM pre- operatively. Will utilize a basal/bolus regimen that was successful during previous admissions. * At home she typically requires >90 units of insulin/D. She is basal heavy. * She did not receive her AM dose of Levemir today. PLAN FOR INPATIENT GLYCEMIC CONTROL: * Holding outpatient oral diabetes medications * Basal insulin * Levemir scale SQ BID * give 30 units for BSGs <200mg/dL * give 40 units for BSGs >/=200mg/dL * Bolus insulin * NovoLog per scale ACHS or Q6hrs while NPO * Goal Range: Low 110 mg/dL - High 140 mg/dL * Correction Factor: 15 mg/dL/unit * Nutritional / Prandial insulin per carb ratio of 1 unit per 6 grams CHO consumed * adding 00,04 checks to help ensure euglycemia post-operatively * Please note that the plan above was derived based on current level of insulin resistance and hospital stress. These recommendations are appropriate for inpatient admission only. Plan of care upon discharge will need to be reassessed to avoid potential outpatient hypo/hyperglycemia. Thank you.
[2018-04-29] MEDS ORDERED: AMLODIPINE BESYLATE 5 MG TAB PO ONE (14:46)
--- NOTE | 2018-04-29 14:59 | Consultation ---
Date of Consultation April 29, 2018 Assessment & Plan (1) S/P TKR (total knee replacement): This is a 62yo F with a PMH of DM II, HTN, HLD, CKD III, h/o CVA in Feb 2016, paroxysmal A Fib (on coumadin), KYLE and osteoarthritis who is POD #0 s/p Left TKA by Dr. Brooks. -Has been nauseated post-operatively, receiving IV Zofran, phenergan PRN -Per ortho for pain control, wound care and activities -Monitor H&H (EBL: 10ml, hemovac drain: 276 ml), continue incentive spirometry -Coumadin held for 5 days pre-operatively (last dose 04/23) with Lovenox bridge ( 150mg SQ Q24H on 04/26-04/27) -Plan to restart Lovenox 150 mg Q24H tomorrow (04/30) for 48 hours -Will plan to give 7.5mg coumadin tomorrow afternoon x 2 days and then resume normal 5mg dose on 05/02 -Need to discuss with primary service -Repeat pt/inr about 1 week after surgery (2) KYLE (iron deficiency anemia): Hgb stable at 12.1 pre-operatively -Underwent recent EGD and colonoscopy, which were both normal -Continue oral iron -Monitor H/H (3) Paroxysmal atrial fibrillation: Recently diagnosed in Feb 2018 -Did not take Toprol this morning but given on floor -Receiving Lovenox bridge with plan to resume coumadin tomorrow -EKG in AM (4) Hypertension: Elevated in setting of pain and missed AM doses of amlodipine, lisinopril , HCTZ and Toprol -Given missed doses of amlodipine and Toprol post-operatively -Optimize pain control -Continue home medications in AM (5) Diabetes mellitus, type 2: A1c of 6.8 in Mar 2018 -Hold home agents -BSG of 268 post-operatively, given 40 units levemir -Glycemic consult placed due to high insulin requirement at home -BSG AC HS (6) Hyperlipidemia: Continue statin (7) Chronic kidney disease (CKD), stage III (moderate): Baseline Cr ~1.2, GFR ~50 -Monitor with BMP tomorrow and hold HCTZ, lisinopril if Cr elevated PCP: [facility] Dispo: Per primary Patient seen in collaboration with Dr. Bourgeois. Please see addendum. Supervising Physician Co-Signing Physician Notes I saw this patient after the physician child center assistant, I did my own history, review of systems, and physical exam. I reviewed the medications with the patient and the physician child center assistant and helped reconcile the medications. I took a detailed family and social history as well. I formulated the assessment and plan personally with the physician child center assistant and went over it with the patient. History of Present Illness Reason for Consultation: post op medical mgmt Attending Physician: Kashif Brooks DO History of Present Illness This is a 62yo F with a PMH of DM II, HTN, HLD, CKD III, h/o CVA in Feb 2016, paroxysmal A Fib (on coumadin), KYLE and osteoarthritis who is POD #0 s/p Left TKA by Dr. Brooks. Patient has been persistently nauseous since procedure and has had 3 episodes of bilious emesis. Has been given Zofran and just received phenergan. Knee pain is a 8/10. Denies any weakness or paresthesias in lower extremities. Denies fever, chills, lightheadedness, confusion, chest pain, SOB, abdominal pain. No bowel movement post-operatively. Was recently found to have paroxysmal A Fib this past February and has been on coumadin. Was instructed by coagulation clinic to hold since 04/24 and bridged with Lovenox 150mg inj on 05/03 and 05/04. Was instructed to resume coumadin at 7.5mg this evening as well as Lovenox 150mg inj. PCP is Dr. Vela. Allergies Allergy/AdvReac Type Severity Reaction Status Date / Time celecoxib Allergy Unknown due to Verified 04/29/18 06:01 stroke unable to take NSAIDS (Non-Steroidal Allergy Unknown unable to Verified 04/29/18 06:01 Anti-Inflamma take due to stroke Home Medications Home Medications Medication Instructions Recorded Confirmed Type acetaminophen [Acetaminophen Extra 500 mg PO UD PRN 04/02/18 04/29/18 History Strength] amlodipine 10 mg PO QAM 04/02/18 04/29/18 History amoxicillin 500 mg PO UD PRN 04/02/18 04/29/18 History atorvastatin 80 mg PO QAM 04/02/18 04/29/18 History enoxaparin [Lovenox] 150 mg SUBCUT UD 04/02/18 04/29/18 History hydrochlorothiazide 12.5 mg PO QAM 04/02/18 04/29/18 History insulin aspart U-100 [Novolog 10 unit SUBCUT TID 04/02/18 04/29/18 History U-100 Insulin aspart] insulin detemir U-100 [Levemir 31 unit SUBCUT BID 04/02/18 04/29/18 History FlexTouch U-100 Insuln] lisinopril 10 mg PO QAM 04/02/18 04/29/18 History metformin 1,000 mg PO BID 04/02/18 04/29/18 History xlfcvujw-wjb-ewri-FA-lutein 1 tab PO DAILY 04/02/18 04/29/18 History [Centrum Silver Women] nortriptyline 10 mg PO HS 04/02/18 04/29/18 History pramipexole [Mirapex] 0.125 mg PO BID 04/02/18 04/29/18 History warfarin [Coumadin] 5 mg PO UD 04/02/18 04/29/18 History Calcium 500 500 mg PO DAILY 04/29/18 04/29/18 History metoprolol succinate 25 mg PO DAILY 04/29/18 04/29/18 History multivitamin 1 tab PO DAILY 04/29/18 04/29/18 History nystatin 1 applic TOPICAL TID PRN 04/29/18 04/29/18 History polysaccharide iron complex 150 mg PO DAILY 04/29/18 04/29/18 History [Ferrex 150] ranitidine HCl 150 mg PO BID PRN 04/29/18 04/29/18 History Patient History Medical History KYLE (iron deficiency anemia) (Chronic) Paroxysmal atrial fibrillation (Chronic) H/O: CVA (cerebrovascular accident) (Resolved) Osteoarthritis (Chronic) Hyperlipidemia (Chronic) Hypertension (Chronic) Diabetes mellitus, type 2 (Chronic) Restless leg syndrome (Chronic) GERD (gastroesophageal reflux disease) (Chronic) Chronic kidney disease (CKD), stage III (moderate) (Chronic) Arthritis of knee, left (Chronic) Surgical History History of total right knee replacement (TKR) (Resolved) History of tubal ligation (Resolved) History of hysterectomy (Resolved) History of eye surgery (Resolved) R RETINA PROCEDURE Status post right knee replacement (Resolved) Status post hysterectomy (Chronic) Status post tubal ligation (Chronic) Family History Father Heart disease Diabetes mellitus, type II Mother Diabetes mellitus, type II Heart disease Social History marital status: marries Current Living Situation: Spouse Other Information That Helps Us Care for You: No Feels Safe at Home: Yes Smoking Status: Never smoker Do You Dip or Chew Tobacco: No 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 Physical Exam 2 Vital Signs (Past 24 Hours): Last Vital Signs Temp 36.4 C L 04/29/18 10:46 Pulse 79 04/29/18 13:10 Resp 18 04/29/18 13:10 BP 183/77 H 04/29/18 13:10 Pulse Ox 94 04/29/18 13:10 Physical Exam: General Appearance: WD/WN, no apparent distress, resting comfortably Head: normocephalic, atraumatic Eyes: normal inspection, PERRL, EOMI ENT: hearing grossly normal, pharynx normal (moist mucous membranes) Neck: supple, no JVD, no adenopathy Respiratory/Chest: lungs clear to auscultation. No wheezes, rales or rhonci. No respiratory distress or accessory muscle use Cardiovascular: regular rate, rhythm, no murmur, normal peripheral pulses Abdomen/GI: normal bowel sounds, soft, non-tender to palpation Extremities/Musculoskelatal: + Left knee with surgical dressing intact. Clean, dry, intact. + Hemovac Normal inspection, no calf tenderness, normal capillary refill, no pedal edema Neurologic/Psych: alert, normal mood/affect, oriented x 3 Skin: normal color, warm/dry Results & Data Diagnostic Findings Knee XR: IMPRESSION: Left total knee arthroplasty. No evidence for hardware complication.
[2018-04-29] MEDS ORDERED: WARFARIN SOD 5 MG TAB PO ONE (16:00)
[2018-04-29] MEDS: INSULIN ASPART 100 UNITS/ML 3 ML PEN SC SCH ×2 (18:16→21:21)
[2018-04-29] MEDS: CELEBREX: ALLERGY NOTED TO ORDERED MEDICATION SCH ×5 (19:04→19:10)
[2018-04-29] MEDS: [UNRECOGNIZED DRUG - REMARK] SCH ×5 (19:05→19:11)
[2018-04-29] MEDS ORDERED: INSULIN DETEMIR FLEXPEN/FLEX TOUCH 100 UNITS/ML 3ML SQ SCH (21:00)
[2018-04-29] MEDS: METOPROLOL SUCC 25MG EXT REL TAB PO SCH (21:12)
[2018-04-29] MEDS: DOCUSATE SODIUM 100 MG CAP PO SCH (21:15)
[2018-04-29] MEDS: SENNA 8.6 MG TAB PO SCH (21:15)
[2018-04-29] MEDS: INSULIN DETEMIR FLEXPEN/FLEX TOUCH 100 UNITS/ML 3ML SC SCH (21:21)
[2018-04-30] MEDS: INSULIN ASPART 100 UNITS/ML 3 ML PEN SC SCH ×6 (00:11→22:00)
[2018-04-30] MEDS: CEFAZOLIN 2000MG 2,000 MG/15 ML SYR IV SCH (00:19)
[2018-04-30] MEDS: OXYCODONE HCL IR 5 MG TAB (IMMEDIATE RELEASE) PO PRN ×5 (01:34→20:49)
[2018-04-30] MEDS: ACETAMINOPHEN 500 MG TAB PO SCH ×3 (05:55→20:56)
--- NOTE | 2018-04-30 07:24 | Orthopedic Progress Note ---
Date of Service April 30, 2018 Assessment & Plan (1) History of total left knee replacement (TKR): POD #1 s/p Left TKA pt/ot dvt proph with DIPESH/SCD/Also on Lovenox 150mg Q24 hours resume today for 48 hours, resume Coumadin. recheck INR tomorrow; will need oupatient labs and follow up with her coag clinic. Nausea improved with Phenergan plan for d/c home with home health when stable AM labs pending As per medicine: (2) KYLE (iron deficiency anemia): Hgb stable at 12.1 pre-operatively -Underwent recent EGD and colonoscopy, which were both normal -Continue oral iron -Monitor H/H (3) Paroxysmal atrial fibrillation: Recently diagnosed in Feb 2018 -Did not take Toprol this morning but given on floor -Receiving Lovenox bridge with plan to resume coumadin tomorrow -EKG in AM (4) Hypertension: Elevated in setting of pain and missed AM doses of amlodipine, lisinopril , HCTZ and Toprol -Given missed doses of amlodipine and Toprol post-operatively -Optimize pain control -Continue home medications in AM (5) Diabetes mellitus, type 2: A1c of 6.8 in Mar 2018 -Hold home agents -BSG of 268 post-operatively, given 40 units levemir -Glycemic consult placed due to high insulin requirement at home -BSG AC HS (6) Hyperlipidemia: Continue statin (7) Chronic kidney disease (CKD), stage III (moderate): Baseline Cr ~1.2, GFR ~50 -Monitor with BMP tomorrow and hold HCTZ, lisinopril if Cr elevated Subjective POD #1 s/p Left TKA Constitutional: no fever, no chills and no sweats Respiratory: no cough and no dyspnea Cardiovascular: no chest pain and no dyspnea Physical Exam 2 Vital Signs (Past 24 Hours): Last Vital Signs Temp 36.8 C 04/30/18 02:49 Pulse 78 04/30/18 02:49 Resp 16 04/30/18 02:49 BP 166/81 H 04/30/18 02:49 Pulse Ox 95 04/30/18 02:49 Musculoskeletal: NVDI, calf SNT, negative nery sign. DP palpable, able to wiggle toes/ankle movement without difficulty. dressing clean dry and intact. Results & Data Laboratory Results Vital Signs Temp 36.8 C 04/30/18 02:49 Pulse 78 04/30/18 02:49 Resp 16 04/30/18 02:49 BP 166/81 H 04/30/18 02:49 Pulse Ox 95 04/30/18 02:49 Intake & Output 04/29/18 04/30/18 04/30/18 18:59 06:59 18:59 Intake Total 2227.167 / 2227.167 1173.333 / 1173.333 Output Total 1936 / 1936 1400 / 1400 Balance 291.167 / 291.167 -226.667 / -226.667 Weight 97 kg Intake: IV 1327.167 / 1327.167 723.333 / 723.333 Phenergan 12.5 mg In Nss 50 ml 50.5 / 50.5 @ 204 mls/hr IV Q6H PRN Rx#: [id number] Nss 1000ML 1,000 ml @ 100 mls/ 1276.667 / 1276.667 723.333 / 723.333 hr IV .Q10H CAROL Rx#:[id number] IV Perioperative 700 / 700 Oral 200 / 200 450 / 450 Output: Urine 1100 / 1100 950 / 950 Emesis 350 / 350 Estimated Blood Loss 10 / 10 Drain Output 476 / 476 450 / 450 Left Knee Hemovac #1 476 / 476 450 / 450 Other: # Unmeasured Voids 1 PT 10.3 Seconds (9.0-12.0) 04/29/18 05:46 APTT 24.8 Seconds (21.0-31.0) 04/29/18 05:46
[2018-04-30 08:05] LABS: Hematocrit (blood only) 31.6 % (37-47); Hemoglobin 10.2 g/dL (12.0-16.0); Mean Corpuscular Hgb Conc 32.3 g/dL (32-36); Mean Corpuscular Volume 86.3 fL (80-100); Mean Platelet Volume 10.2 fL (7.4-10.4); Platelet Count 249 K/uL (130-400); RDW Coefficient of Variation 17.1 % (11.5-14.5); Red Blood Count 3.66 M/uL (4.2-5.4); White Blood Count 10.32 K/uL (4.8-10.8)
[2018-04-30 08:14] LABS: INR 1.1 (0.9-1.1)
[2018-04-30 08:24] LABS: BUN Creatinine Ratio 17.5 (10-20); Calcium 8.6 mg/dl (8.5-10.1); Est GFR (African American) 62.3; Est GFR (Non-African American) 53.8; Potassium 4.4 mmol/L (3.5-5.1)
[2018-04-30 08:26] LABS: Estimated Average Glucose 154 mg/dl
[2018-04-30] MEDS: DOCUSATE SODIUM 100 MG CAP PO SCH ×2 (08:56→20:54)
[2018-04-30] MEDS: ATORVASTATIN 40 MG TAB PO SCH (08:57)
[2018-04-30] MEDS: PANTOprazole 40 MG TAB PO SCH (08:58)
[2018-04-30] MEDS: MULTIVITAMIN TAB PO SCH (08:59)
[2018-04-30] MEDS: NORTRIPTYLINE HCL 10 MG CAP PO SCH (08:59)
[2018-04-30] MEDS ORDERED: NORTRIPTYLINE HCL 10 MG CAP PO SCH (09:00)
[2018-04-30] MEDS: PRAMIPEXOLE DIHYDROCHLO 0.25 MG TAB PO SCH ×2 (09:00→20:55)
[2018-04-30] MEDS ORDERED: METOPROLOL TARTRATE 25 MG TAB PO SCH (09:00)
[2018-04-30] MEDS: hydroCHLOROthiazide 25 MG TAB PO SCH (09:01)
[2018-04-30] MEDS: AMLODIPINE BESYLATE 5 MG TAB PO SCH (09:02)
[2018-04-30] MEDS: METOPROLOL SUCC 25MG EXT REL TAB PO SCH (09:03)
[2018-04-30] MEDS: LISINOPRIL 10 MG TAB PO SCH (09:03)
[2018-04-30] MEDS: ENOXAPARIN 150 MG/ML SYR SQ SCH (09:05)
[2018-04-30] MEDS ORDERED: INSULIN DETEMIR FLEXPEN/FLEX TOUCH 100 UNITS/ML 3ML SC STA (09:07)
[2018-04-30] MEDS ORDERED: ENOXAPARIN 1.5 MG/KG SQ SCH (09:30)
--- NOTE | 2018-04-30 10:59 | Anesthesiology Progress Note ---
Date of Service April 30, 2018 Anesthesia Post Procedure Vital Signs Vital Signs: Temp Pulse Resp BP Pulse Ox 04/30/18 09:00 80 167/79 H 04/30/18 07:25 36.6 C 79 18 152/81 H 95 04/30/18 02:49 36.8 C 78 16 166/81 H 95 04/29/18 23:54 37.0 C 77 16 154/98 H 95 04/29/18 19:14 37 C 80 18 176/83 H 96 04/29/18 15:25 36.7 C 86 16 176/84 H 92 04/29/18 13:10 79 18 183/77 H 94 04/29/18 12:16 84 18 173/82 H 91 04/29/18 11:12 76 18 174/86 H 96 Pain Intensity Left Knee: Pain Intensity: 6 Notes Mental Status: alert / awake / arousable and participated in evaluation Patient Amnestic to Procedure: Yes Nausea / Vomiting: adequately controlled Pain: adequately controlled Airway Patency, RR, SpO2: stable & adequate BP & HR: stable & adequate Hydration State: stable & adequate Neuraxial Anesthesia: was administered and sensory block resolved Anesthetic Complications: no major complications apparent and Pt Satisfied with anesthetic care
--- NOTE | 2018-04-30 12:23 | Hospitalist Progress Note ---
Date of Service April 30, 2018 Assessment & Plan (1) S/P TKR (total knee replacement): This is a 62yo F with a PMH of DM II, HTN, HLD, CKD III, h/o CVA in Feb 2016, paroxysmal A Fib (on coumadin), KYLE and osteoarthritis who is POD #1 s/p Left TKA by Dr. Brooks. Resume home Lovenox regimen, DC home from IM standpoint (2) KYLE (iron deficiency anemia): Hgb stable at 12.1 pre-operatively -Underwent recent EGD and colonoscopy, which were both normal -Continue oral iron (3) Paroxysmal atrial fibrillation: Recently diagnosed in Feb 2018 -Resume Toprol (4) Hypertension: Continue outpatient medical regimen on discharge (5) Diabetes mellitus, type 2: Resume home blood sugar regimen follow-up with PCP in the office in 3-5 days (6) Hyperlipidemia: Continue statin (7) Chronic kidney disease (CKD), stage III (moderate): PCP: Dane Dispo: Home per IM perspective Subjective Patient did well overnight ready for discharge today. Physical Exam 2 Vital Signs (Past 24 Hours): Last Vital Signs Temp 36.6 C 04/30/18 07:25 Pulse 80 04/30/18 09:00 Resp 18 04/30/18 07:25 BP 167/79 H 04/30/18 09:00 Pulse Ox 95 04/30/18 07:25 ROS-No Headache, No Visual Changes, No Fever, No Chills, No Neck Pain or Stiffness, No Chest Pain, No Palpitations, No SOB, No RAYGOZA, No Cough, No Sputum, No Wheezing, No Abdominal Pain, No Diarrhea, No Hematemesis, No Hemoptysis, No Unexpected Weight Loss, No Flank pain, No Melena, No Hematochezia, No Frequency , No Urgency, No Burning, No Hematuria, No Rashes, No Diaphoresis. Appetite is Normal, sore left knee Physical Exam Gen-AAO x 3, NAD, Afebrile, obese Head-NCAT, EOMI, PERRLA, Anicteric Sclera, No Posterior Pharyngeal Erythema Neck-Supple, No JVD, No Thyromegaly, No Masses, No LAD, No Bruits Lungs-Clear to Auscultation Bilaterally, No Rales, No Rhonchi, No Wheezing, No Crepitus Chest-No S4, +S1, +S2, No S3, No Murmurs, No Rubs, No Gallops, No Ectopy Abdomen-Soft, Bowel Sounds Present, Non Tender, Non Distended, No Hepatomegaly, No Splenomegaly, No Palpable Masses, No Rebound, No Rigidity, No Guarding Musculoskeletal-left knee tender, range of motion within normal limits her surgery Extremities-No Cyanosis, No Clubbing, No Edema Nuero-Cranial Nerves II-XII grossly intact, Motor WNL, DTRs WNL, Strength WNL, No Focal Psych-Normal Mood Results & Data Laboratory Results Current Diagnoses Iron deficiency anemia, unspecified (04/29/18) Type 2 diabetes mellitus without complications (04/29/18) Hyperlipidemia, unspecified (04/29/18) Essential (primary) hypertension (04/29/18) Paroxysmal atrial fibrillation (04/29/18) Unilateral primary osteoarthritis, left knee (04/29/18) Chronic kidney disease, stage 3 (moderate) (04/29/18) Presence of left artificial knee joint (04/29/18) Presence of unspecified artificial knee joint (04/29/18) Allergies celecoxib Allergy (Unknown, Verified 04/29/18 06:01) due to stroke unable to take NSAIDS (Non-Steroidal Anti-Inflamma Allergy (Unknown, Verified 04/29/18 06:01) unable to take due to stroke Height/Weight/Isolation Height 5 ft 4 in Weight 97 kg Chemistry 04/30/18 07:50 Sodium 137 Potassium 4.4 Chloride 107 Carbon Dioxide 24 Anion Gap 6.0 BUN 19 H Creatinine 1.10 Glucose 167 H
[2018-04-30] MEDS: ORTHO WARFARIN NOMOGRAM SCH (13:54)
[2018-04-30] MEDS ORDERED: WARFARIN SOD 5 MG TAB PO SCH (16:00)
[2018-04-30] MEDS ORDERED: WARFARIN SOD 7.5 MG TAB PO SCH (16:00)
[2018-04-30] MEDS: SENNA 8.6 MG TAB PO SCH (20:54)
[2018-04-30] MEDS: INSULIN DETEMIR FLEXPEN/FLEX TOUCH 100 UNITS/ML 3ML SC SCH (21:59)
[2018-05-01] MEDS: OXYCODONE HCL IR 5 MG TAB (IMMEDIATE RELEASE) PO PRN ×3 (00:29→10:02)
[2018-05-01] MEDS: ACETAMINOPHEN 500 MG TAB PO SCH (06:03)
--- NOTE | 2018-05-01 07:10 | Orthopedic Progress Note ---
Date of Service May 01, 2018 Assessment & Plan (1) History of total left knee replacement (TKR): POD #1 s/p Left TKA pt/ot dvt proph with DIPESH/SCD/Also on Lovenox 150mg Q24 hours resume today for 48 hours, resume Coumadin. recheck INR tomorrow; will need oupatient labs and follow up with her coag clinic. Nausea improved with Phenergan plan for d/c home with home health PT today, will have home nursing draw PT/ INR tomorrow morning As per medicine: (2) KYLE (iron deficiency anemia): Hgb stable at 12.1 pre-operatively -Underwent recent EGD and colonoscopy, which were both normal -Continue oral iron -Monitor H/H (3) Paroxysmal atrial fibrillation: Recently diagnosed in Feb 2018 -Did not take Toprol this morning but given on floor -Receiving Lovenox bridge with plan to resume coumadin tomorrow -EKG in AM (4) Hypertension: Elevated in setting of pain and missed AM doses of amlodipine, lisinopril , HCTZ and Toprol -Given missed doses of amlodipine and Toprol post-operatively -Optimize pain control -Continue home medications in AM (5) Diabetes mellitus, type 2: A1c of 6.8 in Mar 2018 -Hold home agents -BSG of 268 post-operatively, given 40 units levemir -Glycemic consult placed due to high insulin requirement at home -BSG AC HS (6) Hyperlipidemia: Continue statin (7) Chronic kidney disease (CKD), stage III (moderate): Baseline Cr ~1.2, GFR ~50 -Monitor with BMP tomorrow and hold HCTZ, lisinopril if Cr elevated Subjective POD #2 s/p Left TKA denies CP/SOB denies Fever/Chills Physical Exam 2 Vital Signs (Past 24 Hours): Last Vital Signs Temp 37.0 C 05/01/18 06:40 Pulse 80 05/01/18 06:40 Resp 18 05/01/18 06:40 BP 131/80 05/01/18 06:40 Pulse Ox 97 05/01/18 06:40 Musculoskeletal: NVDI, calf SNT, negative nery sign. DP palpable, able to wiggle toes/ankle movement without difficulty. silverlon dressing clean dry and intact. expected post-operative bruising noted.
[2018-05-01] MEDS: MULTIVITAMIN TAB PO SCH (07:54)
[2018-05-01] MEDS: METOPROLOL SUCC 25MG EXT REL TAB PO SCH (07:54)
[2018-05-01] MEDS: hydroCHLOROthiazide 25 MG TAB PO SCH (07:55)
[2018-05-01] MEDS: PANTOprazole 40 MG TAB PO SCH (07:55)
[2018-05-01] MEDS: DOCUSATE SODIUM 100 MG CAP PO SCH (07:56)
[2018-05-01] MEDS: NORTRIPTYLINE HCL 10 MG CAP PO SCH (07:56)
[2018-05-01] MEDS: LISINOPRIL 10 MG TAB PO SCH (07:56)
[2018-05-01] MEDS: PRAMIPEXOLE DIHYDROCHLO 0.25 MG TAB PO SCH (07:57)
[2018-05-01] MEDS: ATORVASTATIN 40 MG TAB PO SCH (07:57)
[2018-05-01] MEDS: AMLODIPINE BESYLATE 5 MG TAB PO SCH (07:58)
[2018-05-01] MEDS: ENOXAPARIN 150 MG/ML SYR SQ SCH (07:58)
--- NOTE | 2018-05-01 07:58 | Discharge Summary ---
Date of Service Date of Admission: 04/29/18 Date of Discharge:May 01, 2018 Admission HPI Per Admitting Provider Ms Mata is a 62 year old female who is here for a follow up of left knee pain , presents for pre-op evaluation prior to left total knee replacement on 04/29/[address] Brooks. She states that the symptoms have been chronic non-traumatic. The symptoms occur intermittently. The problem is unchanged. Currently the patient states that the symptoms are moderate-severe. The pain is described as aching, dull, throbbing and discomforting. The symptoms occur intermittently. She rates her current pain as 4/10. The symptoms are aggravated by ascending stairs, descending stairs, walking and weather changes. Shana states that the symptoms are relieved by no specific activity. In addition to left knee pain the patient is also experiencing limping, crepitus, stiffness and weakness. The patient has had a previous MRI. Patient is currently taking Lovenox until due to having colonoscopy and endoscopy tomorrow on 04/01/18 then she will resume her Coumadin. Patient has taken NSAIDS with little to no relief. has also had previous cortisone injections with no relief. Admission Exam Per Admitting Provider Left Knee Physical Exam Findings Details Ankle ROM L * Active ROM - Factors: normal, Description: active pain free range of motion. Passive ROM - Factors: normal, Description: passive pain free range of motion. Hip ROM L * Active ROM - Factors: normal, Description: active pain free range of motion. Passive ROM - Factors: normal, Description: passive pain free range of motion. Knee ROM L * Active ROM - Flexion: 110 degrees, Extension: 3 degrees, Factors: pain, Description: active painful range of motion. Passive ROM - Flexion: 110 degrees , Extension: 3 degrees, Factors: pain, Description: passive painful range of motion. Strength LE Normal Strength Description - Normal lower extremity: Bilateral. Hip: Right: strength is normal, Left: strength is normal. Knee: Right: strength is normal, Left: strength is normal. Ankle/Foot: Right: strength is normal, Left: strength is normal. Knee * Inspection - Gait: limp. Alignment - Right: varus, Clinical, Left: varus. Ecchymosis - Right: none, Left: none. Effusion - Right: mild, Left: mild. Swelling - Right: mild. Maximum tenderness - Right: diffuse, Left: diffuse. Patella exam - Crepitation - Right: moderate, Left: moderate. Vera's - Left: Positive. Tg's - lateral - Right: Positive, Left: Positive. [facility]'s - medial - Right: Positive, Left: Positive. Knee Comments Calf SNT, DP+2 Knee Normal Inspection - Atrophy - Right: Absent, Left: Absent. Patella exam - Apprehension - Right: Negative. Vera's - Right: Negative. Valgus stress - Right: Negative , Left: Negative. Varus stress - Right: Negative, Left: Negative. Extensor lag - Right: Normal, Left: Normal. Neurovascular LE Normal Neurovascular examination including reflexes, sensation, and pulses is within normal limits. Principal Diagnosis left knee osteoarthritis Discharge Exam Musculoskeletal NVDI, calf SNT, negative nery sign. DP palpable, able to wiggle toes/ankle movement without difficulty. RULA dressing clean dry and intact. expected post- operative bruising noted. Discharge Data Allergies Allergy/AdvReac Type Severity Reaction Status Date / Time celecoxib Allergy Unknown due to Verified 04/29/18 06:01 stroke unable to take NSAIDS (Non-Steroidal Allergy Unknown unable to Verified 04/29/18 06:01 Anti-Inflamma take due to stroke Consultations 04/29/18 10:31 Consult Case Management - Discharge Planning Routine Consult Hospitalist Routine Procedures Performed Operation Date: 04/29/18 07:15 Actual Procedures p Left Total Knee Arthroplasty(Left) - Kashif Brooks DO Ordered Studies 04/29/18 05:00 US - OR guided needle placemen Routine Hospital Course (1) History of total left knee replacement (TKR): POD #2 s/p Left TKA pt/ot dvt proph with DIPESH/SCD/Also on Lovenox 150mg Q24 hours resume today for 48 hours, resume Coumadin. recheck INR tomorrow with home nursing, follow up with her coag clinic. Nausea improved with Phenergan plan for d/c home with home health PT today, will have home nursing draw PT/ INR tomorrow morning As per medicine: (2) KYLE (iron deficiency anemia): Hgb stable at 12.1 pre-operatively -Underwent recent EGD and colonoscopy, which were both normal -Continue oral iron -Monitor H/H (3) Paroxysmal atrial fibrillation: Recently diagnosed in Feb 2018 -Did not take Toprol this morning but given on floor -Receiving Lovenox bridge with plan to resume coumadin tomorrow -EKG in AM (4) Hypertension: Elevated in setting of pain and missed AM doses of amlodipine, lisinopril , HCTZ and Toprol -Given missed doses of amlodipine and Toprol post-operatively -Optimize pain control -Continue home medications in AM (5) Diabetes mellitus, type 2: A1c of 6.8 in Mar 2018 -Hold home agents -BSG of 268 post-operatively, given 40 units levemir -Glycemic consult placed due to high insulin requirement at home -BSG AC HS (6) Hyperlipidemia: Continue statin (7) Chronic kidney disease (CKD), stage III (moderate): Baseline Cr ~1.2, GFR ~50 -Monitor with BMP tomorrow and hold HCTZ, lisinopril if Cr elevated Total Time Total Time Spent Total Time Spent (In Minutes): 20 Total Time Includes: Examination of the Patient, Discharge Planning and Medication Reconciliation Discharge Plan Discharge Items Patient Disposition: Home - Home Health Services Reason For Visit: Left Knee Osteoarthritis Discharge Diagnosis: left total knee replacement Condition: Good Discharge Goals: Decrease discomfort, Improve function and Increase independence Activity: Per 'Additional Instructions' section Lifting: Wait until after follow-up appointment Weightbearing: Left weightbearing Weightbearing Comment: WBAT with walker Non-emergency contact: Primary Care Provider and Surgeon Call non-emergency contact if: you have any medication questions, your temperature is above 101, your wound has increased redness and your wound has increased drainage Follow-up/Referrals: Gaby Vela DO [Primary Care Provider] - Diet: Carb Consistent or DM2 Addtl Provider Instructions: ACTIVITY RECOMMENDATIONS: SELF CARE INSTRUCTIONS AFTER TOTAL KNEE REPLACEMENT A. You may need to continue a physical therapy program after discharge from the hospital. There are several options available to you. Your doctor will assist you in selecting the best one for you. 1. An out-patient facility 2 to 3 times a week for therapy or home therapy. 2. Continue working on all exercises taught to you in the hospital. Your goals should be to increase bending of your knee to 90 degrees and beyond and to fully straighten your knee. B. You may progress at your own pace from walking with a walker or crutches to a cane; then to no assistive devices. C. Make walking a part of your daily routine. Be up as much as comfortable with rest periods throughout the day. Rest with leg elevation is very important. Use the ice wrap frequently for the first 3-4 weeks. D. There are no restrictions on activities. You may ride in a car, shop, participate in manager loan and all social activities. E. Wear the long elastic stockings (DIPESH hose) 20 hours a day for 2 weeks after surgery. They can be removed several times a day for laundering and for a bath. F. You may shower, no tub baths until cleared by your doctor. SPECIAL CARE INSTRUCTIONS: VERY IMPORTANT TO READ AND REVIEW A. There are a few signs you need to watch for after you are home. Call [facility] if you notice any of the followin. Increased severe knee pain. Some pain is expected especially when you exercise. 2. Increased swelling in your leg or knee; pain or swelling of the calf muscle in either lower leg. 3. Any fluid drainage from the incision. 4. Shortness of breath or chest pain. B. Please call [facility] at if you have any concerns or questions about your operation or recovery. The doctor or his nurse will return your call promptly. C. You must take antibiotics before dental work, bladder, bowel or other surgery. Your doctor will provide you with a permanent care to carry describing this precaution. IMPORTANT: * RESUME YOUR HOME DOSE OF COUMADIN, WILL HAVE HOME NURSING DRAW PT/INR TOMORROW AM ON 05/02/18 AND HAVE COAG CLINIC SENT THOSE RESULTS. * CALL IF INCREASED PAIN, REDNESS, DRAINAGE OR FEVER GREATER THAT 101. * WEAR DIPESH HOSE 20 HOURS PER DAY FOR 2 WEEKS. * RULA Dressing- This is a large suction dressing covering your incision. This will help pull any excess drainage from the wound and allow your incision to heal properly. You may shower with this if you can keep the unit outside of the shower. If any bleeding or leakage is noted please call your doctor's office. This will remain on your incision for 7 days and then should be removed. This can be done yourself or by the home nursing staff if applicable. The entire unit is disposable once removed. Once removed, keep incision clean and dry. If redness or drainage is noted, please call your surgeon. AFTER RULA IS REMOVED, FOLLOW THESE INSTRUCTIONS: DERMABOND Prineo- This is a mesh tape dressing that is covered with glue. It should remain in place until the incision is properly healed, usually 10-14 days. This dressing is designed to naturally slough off. You may trim the excess mesh tape as it peels off. Incision may be briefly wet in a shower. Dry immediately by blotting with a clean, dry towel. Do not bath or swim until instructed by your doctor. Do not scratch, rub, or pick at the dressing. Do not apply any topical ointments or lotions until dressing is completely removed and/or instructed by your doctor. There may be a small piece of suture material at one end of your incision. Do not pull or trim this. If it is bothersome or catching on clothing, you may cover it with a band-aid. FOLLOW UP VISIT: If appointment is not already scheduled: Please call [facility] to make a follow-up appointment for 2 weeks after your surgery at . Prescriptions: New acetaminophen [Pain Reliever] 500 mg Tablet 1,000 mg PO Q8 Qty: 63 RF: 0 docusate sodium 100 mg Capsule 100 mg PO BID 10 Days Qty: 20 RF: 0 oxycodone 5 mg Tablet 5 - 10 mg PO Q4H PRN (Reason: pain) Qty: 30 RF: 0 Continue amoxicillin 500 mg Capsule 500 mg PO UD PRN (Reason: pre dental) RF: 0 atorvastatin 80 mg Tablet 80 mg PO QAM RF: 0 amlodipine 10 mg Tablet 10 mg PO QAM RF: 0 insulin aspart U-100 [Novolog U-100 Insulin aspart] 100 unit/mL Solution 10 unit SUBCUT TID RF: 0 nortriptyline 10 mg Capsule 10 mg PO HS RF: 0 metformin 1,000 mg Tablet 1,000 mg PO BID RF: 0 lisinopril 10 mg Tablet 10 mg PO QAM RF: 0 warfarin [Coumadin] 5 mg Tablet 5 mg PO UD RF: 0 pramipexole [Mirapex] 0.125 mg Tablet 0.125 mg PO BID RF: 0 insulin detemir U-100 [Levemir FlexTouch U-100 Insuln] 100 unit/mL (3 mL) Insulin Pen 31 unit SUBCUT BID RF: 0 hydrochlorothiazide 12.5 mg Tablet 12.5 mg PO QAM RF: 0 kfekbbuz-cqz-ghgi-FA-lutein [Centrum Silver Women] 8 mg iron-400 mcg-300 mcg Tablet 1 tab PO DAILY RF: 0 multivitamin Tablet 1 tab PO DAILY RF: 0 polysaccharide iron complex [Ferrex 150] 150 mg iron Capsule 150 mg PO DAILY RF: 0 ranitidine HCl 150 mg Tablet 150 mg PO BID PRN (Reason: Dyspepsia) RF: 0 metoprolol succinate 25 mg tablet extended release 24 hr 25 mg PO DAILY RF: 0 nystatin 100,000 unit/gram Powder 1 applic TOPICAL TID PRN (Reason: Itching) RF: 0 Calcium 500 500 mg PO DAILY RF: 0 Discontinued enoxaparin [Lovenox] 150 mg/mL Syringe 150 mg SUBCUT UD RF: 0 acetaminophen [Acetaminophen Extra Strength] 500 mg Tablet 500 mg PO UD PRN (Reason: Pain) RF: 0 Stand-Alone Forms: [facility] Discharge Orders: Discharge Order (Routine); Ordered 05/01/18 Ordered By: Primo Butler Admission Data Admit Date/Time: 04/29/18 09:27 Attending Provider: Kashif Brooks Admit Provider: Kashif Brooks Primary Care Provider: Gaby Vela Other Providers: Carlos Naranjo ; Bernard Bourgeois Service: Surgical Services Other Pending Studies at Discharge: No
[2018-05-01] MEDS: INSULIN DETEMIR FLEXPEN/FLEX TOUCH 100 UNITS/ML 3ML SC SCH (08:03)
[2018-05-01 08:04] LABS: Hematocrit (blood only) 29.8 % (37-47); Hemoglobin 9.7 g/dL (12.0-16.0); Mean Corpuscular Hgb Conc 32.6 g/dL (32-36); Mean Corpuscular Volume 86.6 fL (80-100); Mean Platelet Volume 10.4 fL (7.4-10.4); Platelet Count 205 K/uL (130-400); RDW Coefficient of Variation 17.6 % (11.5-14.5); RDW Standard Deviation 55.6 fL (36.4-46.3); Red Blood Count 3.44 M/uL (4.2-5.4); White Blood Count 6.85 K/uL (4.8-10.8)
[2018-05-01] MEDS: INSULIN ASPART 100 UNITS/ML 3 ML PEN SC SCH (08:04)
[2018-05-01 08:43] LABS: BUN Creatinine Ratio 18.1 (10-20); Calcium 8.6 mg/dl (8.5-10.1); Creatinine Clr Calc Pharmacy 60.5 ml/min; Est GFR (Non-African American) 54.4; INR 1.2 (0.9-1.1); Potassium 4.1 mmol/L (3.5-5.1); Prothrombin Time 12.3 Seconds (9.0-12.0)
--- NOTE | 2018-05-01 11:46 | Hospitalist Progress Note ---
Date of Service May 01, 2018 Assessment & Plan (1) S/P TKR (total knee replacement): This is a 62yo F with a PMH of DM II, HTN, HLD, CKD III, h/o CVA in Feb 2016, paroxysmal A Fib (on coumadin), KYLE and osteoarthritis who is POD #2 s/p Left TKA by Dr. Brooks. Resume home Lovenox regimen, DC home from IM standpoint, is ambulating in hallways with a front wheel walker today (2) KYLE (iron deficiency anemia): Hgb stable at 12.1 pre-operatively -Underwent recent EGD and colonoscopy, which were both normal -Continue oral iron (3) Paroxysmal atrial fibrillation: Recently diagnosed in Feb 2018 -Resume Toprol (4) Hypertension: Continue outpatient medical regimen on discharge (5) Diabetes mellitus, type 2: Resume home blood sugar regimen follow-up with PCP in the office in 3-5 days (6) Hyperlipidemia: Continue statin (7) Chronic kidney disease (CKD), stage III (moderate): PCP: Dane Dispo: Home today per IM perspective Subjective Patient did well overnight ready for discharge today. Physical Exam 2 Vital Signs (Past 24 Hours): Last Vital Signs Temp 37.0 C 05/01/18 09:28 Pulse 80 05/01/18 09:28 Resp 18 05/01/18 09:28 BP 131/80 05/01/18 09:28 Pulse Ox 97 05/01/18 09:28
== END 2018-05-01 11:11 | disposition home health service (06) | DRG 470 ==
LOC: ASU 05:16 → 3E 09:27
DX: N18.3 Chronic kidney disease, stage 3 (moderate); I69.398 Other sequelae of cerebral infarction; Z82.49 Family history of ischemic heart disease and other diseases of the circulatory system; M17.12 Unilateral primary osteoarthritis, left knee; Z79.01 Long term (current) use of anticoagulants; Z83.3 Family history of diabetes mellitus; G25.81 Restless legs syndrome; Z79.84 Long term (current) use of oral hypoglycemic drugs; I12.9 Hypertensive chronic kidney disease with stage 1 through stage 4 chronic kidney disease, or unspecified chronic kidney disease; Z79.4 Long term (current) use of insulin; Z79.82 Long term (current) use of aspirin; E78.5 Hyperlipidemia, unspecified; Z96.651 Presence of right artificial knee joint; E11.21 Type 2 diabetes mellitus with diabetic nephropathy; I48.0 Paroxysmal atrial fibrillation; D50.9 Iron deficiency anemia, unspecified

== ENCOUNTER 2021-02-12 16:48 | Observation (INO) ==
[2021-02-12] MEDS ORDERED: SODIUM CHLORIDE 0.9% 500 ML IV STA (17:10)
--- NOTE | 2021-02-12 17:14 | Emergency Department Note ---
Impression & Plan COVID-19 Admission ED Provider Note HPI: The patient is a 65-year-old female with history of diabetes, atrial fibrillation, on Eliquis, presents emergency department with a chief complaint of cough and shortness of breath. Patient states she was recently diagnosed with COVID-19, she was tested on Saturday and received a call on Saturday stating her test was positive, states that she has had progressive shortness of breath and coughing over about the past 5 days. Patient denies any chest pain. States she feels generally weak, has some myalgias, states that symptomatically she feels as if she is worsening. On arrival to the ED the patient does display some mild increased work of breathing, she is saturating at 91% on room air, blood pressure stable, she is not tachycardic. ROS: -Pulmonary: Increased work of breathing/COVID-19 -MSK: Myalgias *10 point review systems was conducted and is otherwise negative unless stated above *Outpatient medications and allergy history reviewed PE: General: Alert, NAD HEENT: Normocephalic, atraumatic, trachea midline Eyes: Extraocular eye movement is intact, no scleral erythema Pulmonary: Diminished air movement bilaterally with tachypnea, no wheezing or crackles Cardio: Regular rate and rhythm GI: Abdomen is soft, nontender : No suprapubic tenderness MSK: No evidence of trauma or malformation of the extremities, no edema Skin: No evidence of rash Neuro: Alert, no focal deficits Psychiatric: Cooperative supervisor ditching: Ordered, patient is in sinus rhythm on the monitor EKG: Rate: 83 Rhythm: Sinus rhythm with sinus arrhythmia Intervals: Within normal limits ST changes: No ST elevation Time: 1735 Medical Decision Making: Patient presented to the emergency department with a chief complaint of shortness of breath and cough, she was recently diagnosed with COVID-19 was tested this past Saturday at an outpatient facility. On arrival here to the ED she has borderline oxygen saturations at 90% on room air with increased work of breathing. On my initial assessment she has diminished bilateral breath sounds, abdomen is soft and nontender, she does exhibit some mild increased work of gerald athing on arrival. Lab work shows evidence of a slightly elevated troponin at 0.15, EKG does not sh ow any ischemic changes, I suspect this is demand ischemia related to her illness with borderline hypoxia. Patient's lab work shows creatinine at 1.5, she does have history of CKD. Chest x-ray shows a pattern of viral pneumonia, on my reassessment the patient is on 2 L nasal cannula oxygen, she was given a dose of Decadron in the ED, her oxygen saturations did improve to the high 90s with nasal cannula. In a discussion with the patient regarding these findings, she is in agreement for admission to a telemetry bed for trending of troponins and supplemental oxygen therapy. Case was discussed with the on-call admitting team the patient will be admitted for further management. Procalcitonin is pending, blood cultures will be drawn, repeat COVID-19 testing is also pending. * Diagnosis: COVID-19 pneumonia * Disposition: Admission * CRITICAL CARE TIME: 36 min Management of hypoxia requiring supplemental oxygen to maintain oxygen requirements greater than 92% on room air, time spent at the bedside, interpretation of diagnostic studies, discussion with other healthcare providers, arrangement of admission for hypoxia with new supplemental oxygen requirement Primo Patten DO Emergency Medicine Past Med/Surg History Medical History Arthritis of knee, left Chronic kidney disease (CKD), stage III (moderate) GERD (gastroesophageal reflux disease) H/O: CVA (cerebrovascular accident) Hyperlipidemia Hypertension KYLE (iron deficiency anemia) Lagophthalmos Osteoarthritis Paroxysmal atrial fibrillation Restless leg syndrome Surgical History H/O cataract extraction (2019) History of eye surgery History of total left knee replacement (TKR) History of total right knee replacement (TKR) S/P TKR (total knee replacement) Status post hysterectomy Status post right knee replacement Status post surgery Status post tubal ligation Family History Father Heart disease Diabetes mellitus, type II Myocardial infarction Mother Diabetes mellitus, type II Heart disease Myocardial infarction Aunt Breast cancer Denies family history of Ovarian cancer Prostate cancer Lung cancer Colorectal cancer Social History Smoking Status: Never smoker Hx Alcohol Use: No Hx Substance Use: No Preferred Language: Syriac Communication Ability: Effective Visual Impairment: No Limitations Hearing Ability: Normal Aviation Safety Technician Required: No Beliefs That Will Affect Care: None marital status: Current Living Situation: Spouse current occupational status: retired Feels Safe at Home: Yes Childhood Exposure to Second-Hand Smoke: No Diet Comment: regular caffeine: Yes during the past year weight has: increased > 10 lbs Dental Care, Regularly: Yes Physical Activity Frequency: Daily Seatbelt Use: always Sunscreen Use: Yes Assistive Devices: Glasses and Walker Allergies Allergies Allergy/AdvReac Type Severity Reaction Status Date / Time celecoxib Allergy Unknown due to Verified 12/30/20 10:54 stroke unable to take NSAIDS (Non-Steroidal Allergy Unknown unable to Verified 12/30/20 10:54 Anti-Inflamma take due to stroke Salicylates Allergy Unknown Uncoded 12/30/20 10:54 Home Meds Home Medications Medication Instructions Recorded Confirmed multivit with 1 tab PO DAILY 04/02/18 12/30/20 [id number] 8 mg iron-400 mcg-300 mcg tablet (Centrum Silver Women) nystatin 100,000 unit/gram topical 1 applic TOPICAL TID PRN 04/29/18 12/30/20 powder polysaccharide iron complex 150 mg 150 mg PO DAILY 04/29/18 12/30/20 iron capsule (Ferrex) ranitidine HCl 150 mg tablet 150 mg PO BID PRN 04/29/18 12/30/20 acetaminophen 500 mg tablet (Pain 1,000 mg PO Q8 PRN tab 09/10/18 12/30/20 Reliever (acetaminophen)) calcium carbonate 500 mg (1,250 1 tab PO DAILY tab 01/26/19 12/30/20 mg)-vitamin D3 400 unit tablet lancets ([place] UltraSoft #50 ea 01/26/19 12/30/20 Lancets) blood sugar diagnostic ([place] Water[employer] 12/30/20 12/30/20 Verio test strips) Previous Rx's Medication Instructions Recorded aspirin 81 mg tablet,delayed 81 mg PO DAILY #90 tab 01/26/19 release (Aspirin Low Dose) amoxicillin 500 mg capsule 2,000 mg PO ONCE PRN #4 cap 06/17/19 Levemir FlexTouch U-100 Insuln 100 36 unit SUBCUT BID #75 ml NS 05/12/20 unit/mL (3 mL) subcutaneous pen (insulin detemir U-100) lisinopril 20 mg tablet 20 mg PO DAILY #90 tab 05/26/20 insulin aspart U-100 100 unit/mL 20 unit SUBCUT TID #6 vial 06/20/20 subcutaneous solution (Novolog U-100 Insulin aspart) insulin syringe-needle U-100 0.5 #3 box 06/20/20 mL 31 gauge x 5/16" (BD Insulin Syringe Ultra-Fine) pen needle, diabetic 31 gauge x #2 box 06/20/20 3/16" (BD Ultra-Fine Mini Pen Needle) atorvastatin 80 mg tablet 80 mg PO QAM #90 tab 07/11/20 apixaban 5 mg tablet (Eliquis) 5 mg PO BID #180 tab 11/11/20 metformin 1,000 mg tablet 1,000 mg PO BID #180 tab 11/11/20 nortriptyline 10 mg capsule 10 mg PO DAILY #90 cap 11/11/20 hydrochlorothiazide 12.5 mg tablet 12.5 mg PO DAILY #90 tab 11/15/20 pramipexole 0.125 mg tablet 0.125 mg PO .COMPLEX #270 tab 11/15/20 (Mirapex) metoprolol succinate 25 mg 25 mg PO DAILY #90 tab 01/03/21 tablet,extended release 24 hr amlodipine 10 mg tablet 10 mg PO QAM #90 tab 02/09/21 Results & Data (ED) Vital Signs Vital Signs - 24 hr 02/12/21 17:01 02/12/21 17:11 02/12/21 17:12 Temperature 37.7 C H Temperature Source Oral Pulse Rate 91 H 88 Pulse Rate from SpO2 Sensor Pulse Rhythm Regular Respiratory Rate 20 20 Respiratory Effort / Characteristics Non-Labored Spontaneous Respiratory Depth Normal Blood Pressure 158/66 H Blood Pressure Mean 96 Blood Pressure Position Sitting Pulse Oximetry 93 90 90 Oxygen Delivery Method Room Air Room Air Nasal Cannula Oxygen Flow Rate 2 Sepsis Recent Fever Within 48 Hours Yes Sepsis New/Unexplained Change in Mental Status N/A Sepsis Action Taken by Nursing No Action Required Pulse Oximetry Post Tiitration 97 02/12/21 17:32 02/12/21 17:40 02/12/21 17:50 Temperature Temperature Source Pulse Rate 82 80 83 Pulse Rate from SpO2 Sensor 93 H 90 80 Pulse Rhythm Respiratory Rate 30 H 29 H 22 Respiratory Effort / Characteristics Respiratory Depth Blood Pressure Blood Pressure Mean Blood Pressure Position Pulse Oximetry 96 95 96 Oxygen Delivery Method Oxygen Flow Rate Sepsis Recent Fever Within 48 Hours Sepsis New/Unexplained Change in Mental Status Sepsis Action Taken by Nursing Pulse Oximetry Post Tiitration 02/12/21 18:00 02/12/21 18:10 02/12/21 18:20 Temperature Temperature Source Pulse Rate 79 81 71 Pulse Rate from SpO2 Sensor 81 80 80 Pulse Rhythm Respiratory Rate 20 23 19 Respiratory Effort / Characteristics Respiratory Depth Blood Pressure Blood Pressure Mean Blood Pressure Position Pulse Oximetry 96 94 94 Oxygen Delivery Method Oxygen Flow Rate Sepsis Recent Fever Within 48 Hours Sepsis New/Unexplained Change in Mental Status Sepsis Action Taken by Nursing Pulse Oximetry Post Tiitration 02/12/21 18:30 Temperature Temperature Source Pulse Rate 82 Pulse Rate from SpO2 Sensor 90 Pulse Rhythm Respiratory Rate 19 Respiratory Effort / Characteristics Respiratory Depth Blood Pressure Blood Pressure Mean Blood Pressure Position Pulse Oximetry 95 Oxygen Delivery Method Oxygen Flow Rate Sepsis Recent Fever Within 48 Hours Sepsis New/Unexplained Change in Mental Status Sepsis Action Taken by Nursing Pulse Oximetry Post Tiitration Laboratory Data Result diagrams: 02/12/21 17:35 02/12/21 17:35 Lab Results 02/12/21 02/12/21 02/12/21 Range/Units 17:35 17:35 17:35 WBC 3.06 L (4.8-10.8) K/uL RBC 4.19 L (4.2-5.4) M/uL Hgb 11.4 L (12.0-16.0) g/dL Hct 34.8 L (37-47) % MCV 83.1 (80-100) fL MCH 27.2 (25-34) pg MCHC 32.8 (32-36) g/dL RDW Std Deviation 45.6 (36.4-46.3) fL RDW Coeff of [place] 14.9 H (11.5-14.5) % Plt Count 222 (130-400) K/uL MPV 10.4 (7.4-10.4) fL Immature Gran % (Auto) 0.0 % Neut % (Auto) 69.6 % Lymph % (Auto) 23.9 % [place] % (Auto) 6.2 % Eos % (Auto) 0.0 % Baso % (Auto) 0.3 % Neut # (Auto) 2.13 (1.4-6.5) K/uL Lymph # (Auto) 0.73 L (1.2-3.4) K/uL [place] # (Auto) 0.19 (0.11-0.59) K/uL Eos # (Auto) 0.00 (0-0.5) K/uL Baso # (Auto) 0.01 (0-0.2) K/uL Immature Gran # (Auto) 0.00 (0.00-0.02) K/uL APTT 37.4 H (21.0-31.0) Seconds PTT Ratio 1.4 VBG pH (7.36-7.41) VBG pCO2 (38-50) mmHg VBG pO2 mmHg VBG HCO3 mmol/L VBG O2 Saturation % VBG Base Excess mEq/L Barometric Pressure mm/Hg Sodium 137 (136-145) mmol/L Potassium 3.3 L (3.5-5.1) mmol/L Chloride 105 (98-107) mmol/L Carbon Dioxide 21 (21-32) mmol/L Anion Gap 10.0 (3-11) BUN 22 H (7-18) mg/dl Creatinine 1.54 H (0.6-1.2) mg/dl Est Cr Clr Drug Dosing 42.8 ml/min Est GFR ( Amer) 40.6 ml/min Est GFR (Non-Af Amer) 35.0 ml/min BUN/Creatinine Ratio 14.0 (10-20) Glucose 48 L* (70-99) mg/dl Calcium 8.7 (8.5-10.1) mg/dl Total Bilirubin 0.3 (0.2-1) mg/dl AST 39 H (15-37) U/L ALT 32 (12-78) U/L Alkaline Phosphatase 93 (45-117) U/L Troponin I 0.154 H* (0-0.045) ng/ml Total Protein 7.6 (6.4-8.2) gm/dl Albumin 2.8 L (3.4-5.0) gm/dl Globulin 4.8 H (2.5-4.0) gm/dl Albumin/Globulin Ratio 0.6 L (0.9-2) Lipase 278 (73-393) U/L 02/12/21 Range/Units 17:56 WBC (4.8-10.8) K/uL RBC (4.2-5.4) M/uL Hgb (12.0-16.0) g/dL Hct (37-47) % MCV (80-100) fL MCH (25-34) pg MCHC (32-36) g/dL RDW Std Deviation (36.4-46.3) fL RDW Coeff of Citlalli (11.5-14.5) % Plt Count (130-400) K/uL MPV (7.4-10.4) fL Immature Gran % (Auto) % Neut % (Auto) % Lymph % (Auto) % [place] % (Auto) % Eos % (Auto) % Baso % (Auto) % Neut # (Auto) (1.4-6.5) K/uL Lymph # (Auto) (1.2-3.4) K/uL [place] # (Auto) (0.11-0.59) K/uL Eos # (Auto) (0-0.5) K/uL Baso # (Auto) (0-0.2) K/uL Immature Gran # (Auto) (0.00-0.02) K/uL APTT (21.0-31.0) Seconds PTT Ratio VBG pH 7.36 (7.36-7.41) VBG pCO2 38 (38-50) mmHg VBG pO2 91 mmHg VBG HCO3 21 mmol/L VBG O2 Saturation 86.8 % VBG Base Excess -3.9 mEq/L Barometric Pressure 733.2 mm/Hg Sodium (136-145) mmol/L Potassium (3.5-5.1) mmol/L Chloride (98-107) mmol/L Carbon Dioxide (21-32) mmol/L Anion Gap (3-11) BUN (7-18) mg/dl Creatinine (0.6-1.2) mg/dl Est Cr Clr Drug Dosing ml/min Est GFR ( Amer) ml/min Est GFR (Non-Af Amer) ml/min BUN/Creatinine Ratio (10-20) Glucose (70-99) mg/dl Calcium (8.5-10.1) mg/dl Total Bilirubin (0.2-1) mg/dl AST (15-37) U/L ALT (12-78) U/L Alkaline Phosphatase (45-117) U/L Troponin I (0-0.045) ng/ml Total Protein (6.4-8.2) gm/dl Albumin (3.4-5.0) gm/dl Globulin (2.5-4.0) gm/dl Albumin/Globulin Ratio (0.9-2) Lipase (73-393) U/L Administered Medications Discontinued Medications Dexamethasone (Dexamethasone Sod Inj 4 Mg/Ml Vial) Confirm Administered Dose 8 mg .ROUTE .STK-MED ONE Stop: 02/12/21 18:26 Last Admin: 02/12/21 18:37 Dose: 8 mg Documented by: [id number] Dextrose (Dextrose 50% 50 Ml Syringe) 50 ml IV NOW STA Stop: 02/12/21 18:13 Last Admin: 02/12/21 18:36 Dose: 50 ml Documented by: [id number] Sodium Chloride (Nss) 500 mls @ 999 mls/hr IV .Q31M STA Stop: 02/12/21 17:40 Last Infusion: 02/12/21 18:23 Dose: 0 mls/hr Documented by: [id number] Admin: 02/12/21 17:44 Dose: 999 mls/hr Documented by: [id number] Dexamethasone 8 mg/ Syringe 2 mls @ 1 mls/min IV ONE ONE Stop: 02/12/21 17:49 Last Admin: 02/12/21 18:37 Dose: Not Given Documented by: [id number] Imaging Data Radiologist's Impression: Chest X-Ray 02/12/21 17:11 XR chest 1V portable CLINICAL HISTORY: Atypical chest pain TECHNIQUE: Single frontal radiograph of the chest was obtained. Comparison: Comparison is made to chest one view 03/31/2018 FINDINGS: No lines and tubes are seen. The cardiomediastinal silhouette is normal. Multifocal airspace opacities are seen predominantly in the lower lungs. No evidence of pleural effusion or pneumothorax. IMPRESSION: Multifocal airspace opacities may represent atelectasis, pneumonia, and/or aspiration. ACT 112: Negative or not required by law. Electronically signed by: Wolf Geiger M.D. 02/12/2021 5:56 PM Discharge Plan Visit Data Chief Complaint: Cough Stated Complaint: COVID POSITIVE 02/10/21/COUGH/FEVER/CHILLS ED Provider: Primo Patten Discharge Problem: COVID-19 Forms Stand Alone Forms: [facility] [employer] Prescriptions Prescriptions: No Action acetaminophen [Pain Reliever (acetaminophen)] 500 mg tablet 1,000 mg PO Q8 PRN (Reason: pain) RF: 0 amoxicillin 500 mg capsule 2,000 mg PO ONCE PRN (Reason: 30-60 min prior to dental care) Qty: 4 RF: 1 Levemir FlexTouch U-100 Insuln 100 unit/mL (3 mL) insulin pen 36 unit SUBCUT BID Qty: 75 RF: 3 lisinopril 20 mg tablet 20 mg PO DAILY Qty: 90 RF: 1 atorvastatin 80 mg tablet 80 mg PO QAM Qty: 90 RF: 2 nortriptyline 10 mg capsule 10 mg PO DAILY Qty: 90 RF: 1 Eliquis 5 mg tablet 5 mg PO BID Qty: 180 RF: 1 metformin 1,000 mg tablet 1,000 mg PO BID Qty: 180 RF: 3 pramipexole [Mirapex] 0.125 mg tablet 0.125 mg PO .COMPLEX Qty: 270 RF: 1 hydrochlorothiazide 12.5 mg tablet 12.5 mg PO DAILY Qty: 90 RF: 1 metoprolol succinate 25 mg tablet extended release 24 hr 25 mg PO DAILY Qty: 90 RF: 1 amlodipine 10 mg tablet 10 mg PO QAM Qty: 90 RF: 1 aspirin [Aspirin Low Dose] 81 mg tablet,delayed release (DR/EC) 81 mg PO DAILY Qty: 90 RF: 3 (DME) OneTouch Verio test strips Strip See Rx Instructions .ROUTE RF: 0 (DME) insulin syringe-needle U-100 [BD Insulin Syringe Ultra-Fine] 0.5 mL 31 gauge x 5/16" syringe See Rx Instructions .ROUTE .MEDSUPPLY Qty: 3 RF: 6 (DME) pen needle, diabetic [BD Ultra-Fine Mini Pen Needle] 31 gauge x 3/16" needle See Rx Instructions .ROUTE .MEDSUPPLY Qty: 2 RF: 6 Novolog U-100 Insulin aspart 100 unit/mL solution 20 unit SUBCUT TID Qty: 6 RF: 6 (DME) lancets [OneTouch UltraSoft Lancets] misc See Dose Instructions .ROUTE .MEDSUPPLY Qty: 50 RF: 0 calcium carbonate-vitamin D3 500 mg(1,250mg) -400 unit tablet 1 tab PO DAILY RF: 0 [id number]-[id number]-nemk-FA-lutein [Centrum Silver Women] 8 mg iron-400 mcg-300 mcg Tablet 1 tab PO DAILY RF: 0 polysaccharide iron complex [Ferrex 150] 150 mg iron Capsule 150 mg PO DAILY RF: 0 ranitidine HCl 150 mg Tablet 150 mg PO BID PRN (Reason: Dyspepsia) RF: 0 nystatin 100,000 unit/gram Powder 1 applic TOPICAL TID PRN (Reason: Itching) RF: 0 Referrals Referrals: Zelda Smith DO [Primary Care Provider] -
[2021-02-12] MEDS ORDERED: dexAMETHasone 8 MG in SYRINGE 0 ML IV ONE (17:48)
[2021-02-12 17:49] LABS: Basophils # (auto) 0.01 K/uL (0-0.2); Basophils % (auto) 0.3 %; Hematocrit (blood only) 34.8 % (37-47); Hemoglobin 11.4 g/dL (12.0-16.0); Lymphocytes # (auto) 0.73 K/uL (1.2-3.4); Lymphocytes % (auto) 23.9 %; Mean Corpuscular Hemoglobin 27.2 pg (25-34); Mean Corpuscular Hgb Conc 32.8 g/dL (32-36); Mean Corpuscular Volume 83.1 fL (80-100); Mean Platelet Volume 10.4 fL (7.4-10.4); Monocytes # (auto) 0.19 K/uL (0.11-0.59); Monocytes % (auto) 6.2 %; Neutrophils # (auto) 2.13 K/uL (1.4-6.5); Neutrophils % (auto) 69.6 %; Platelet Count 222 K/uL (130-400); RDW Coefficient of Variation 14.9 % (11.5-14.5); RDW Standard Deviation 45.6 fL (36.4-46.3); Red Blood Count 4.19 M/uL (4.2-5.4); White Blood Count 3.06 K/uL (4.8-10.8)
--- NOTE | 2021-02-12 17:57 | XRay Report ---
XR chest 1V portable CLINICAL HISTORY: Atypical chest pain TECHNIQUE: Single frontal radiograph of the chest was obtained. Comparison: Comparison is made to chest one view 03/31/2018 FINDINGS: No lines and tubes are seen. The cardiomediastinal silhouette is normal. Multifocal airspace opacitie s are seen predominantly in the lower lungs. No evidence of pleural effusion or pneumothorax. IMPRESSION: Multifocal airspace opacities may represent atelectasis, pneumonia, and/or aspiration. ACT 112: Negative or not required by law. Electronically signed by: Wolf Geiger M.D. 02/12/2021 5:56 PM
[2021-02-12 18:03] LABS: Partial Thromboplastin Ratio 1.4; Partial Thromboplastin Time 37.4 Seconds (21.0-31.0)
[2021-02-12 18:05] LABS: Base Excess VBG -3.9 mEq/L; Oxygen Saturation VBG 86.8 %; pH VBG 7.36 (7.36-7.41)
[2021-02-12 18:12] LABS: Albumin Level 2.8 gm/dl (3.4-5.0); Calcium 8.7 mg/dl (8.5-10.1); Creatinine Clr Calc Pharmacy 42.8 ml/min; Est GFR (African American) 40.6 ml/min; Potassium 3.3 mmol/L (3.5-5.1)
[2021-02-12] MEDS ORDERED: DEXTROSE 50% 50 ML SYRINGE IV STA (18:12)
[2021-02-12 18:17] LABS: Albumin Globulin Ratio 0.6 (0.9-2); Bilirubin,Total 0.3 mg/dl (0.2-1); Globulin 4.8 gm/dl (2.5-4.0); Total Protein 7.6 gm/dl (6.4-8.2); Troponin I 0.154 ng/ml (0-0.045)
[2021-02-12] MEDS ORDERED: DEXAMETHASONE SOD INJ 4 MG/ML VIAL ONE (18:25)
--- NOTE | 2021-02-12 18:58 | History & Physical Report ---
Date of Service February 12, 2021 Assessment & Plan (1) COVID-19: Plan: Patient will be admitted to the medical COVID floor. Patient will be placed on Remdesevir (5 day coruse) and dexamethasone (10 day course). Will check C-reactive protein Procal is negative. Patient is currently on 2 liters nasal cannula. Discharge in 48 hours, if patient remains at 2-3 liters nasal cannula, and symptoms remain controlled. Patient recommended to prone. (2) Diabetes mellitus type 2, uncontrolled, with complications: Plan: will consult glycemic control (3) Chronic kidney disease (CKD), stage III (moderate): Plan: acute kidney injury. Creatinine is at 1.5 receivied IVF. will continue to monitor. (4) Hypertension: Plan: resume home meds. above goal. (5) Hyperlipidemia: Plan: resume home meds (6) Paroxysmal atrial fibrillation: Plan: HR is rate controlled. will resume apixaban (7) Elevated troponin: Plan: trop is at 0.154 will check serial trop. likely demand ischemia. already on anticoagulation History of Present Illness Chief Complaint: worseneing breathing Primary Care Provider: Zelda Smith DO 65 yo vaccinated (2 doses mRNA) female presents to the hospital with a 5 day history of feeling sick. She believes she may have gotten exposed with having a buffet at a restaurant in [place]. For the past 5 days, she has been having SOB accompanied by a non productive cough. This has gradually worsened. This has been accompanied by myalgias, weakness. She was tested on Saturday and was told Saturday that she was COVID-19+. Her is also sick at home but is improving. Allergies Allergy/AdvReac Type Severity Reaction Status Date / Time celecoxib Allergy Unknown due to Verified 02/12/21 18:45 stroke unable to take NSAIDS (Non-Steroidal Allergy Unknown unable to Verified 02/12/21 18:45 Anti-Inflamma take due to stroke Salicylates Allergy Unknown Unknown Uncoded 02/12/21 18:45 Home Medications Medication Instructions Recorded Confirmed Type multivit with 1 tab PO DAILY 04/02/18 02/12/21 History zggoibbb-zudy-YQ-lutein 8 mg iron-400 mcg-300 mcg tablet (Centrum Silver Women) nystatin 100,000 unit/gram topical 1 applic TOPICAL TID PRN 04/29/18 02/12/21 History powder polysaccharide iron complex 150 mg 150 mg PO DAILY 04/29/18 02/12/21 History iron capsule (Ferrex) acetaminophen 500 mg tablet (Pain 1,000 mg PO Q8 PRN tab 09/10/18 02/12/21 History Reliever (acetaminophen)) aspirin 81 mg tablet,delayed 81 mg PO DAILY #90 tab 01/26/19 02/12/21 Rx release (Aspirin Low Dose) calcium carbonate 500 mg (1,250 1 tab PO DAILY tab 01/26/19 02/12/21 History mg)-vitamin D3 400 unit tablet lancets (OneTouch UltraSoft #50 ea 01/26/19 12/30/20 History Lancets) amoxicillin 500 mg capsule 2,000 mg PO ONCE PRN #4 cap 06/17/19 02/12/21 Rx Levemir FlexTouch U-100 Insuln 100 36 unit SUBCUT BID #75 ml NS 05/12/20 02/12/21 Rx unit/mL (3 mL) subcutaneous pen (insulin detemir U-100) lisinopril 20 mg tablet 20 mg PO DAILY #90 tab 05/26/20 02/12/21 Rx insulin aspart U-100 100 unit/mL 20 unit SUBCUT TID #6 vial 06/20/20 02/12/21 Rx subcutaneous solution (Novolog U-100 Insulin aspart) insulin syringe-needle U-100 0.5 #3 box 06/20/20 12/30/20 Rx mL 31 gauge x 5/16" (BD Insulin Syringe Ultra-Fine) pen needle, diabetic 31 gauge x #2 box 06/20/20 12/30/20 Rx 3/16" (BD Ultra-Fine Mini Pen Needle) atorvastatin 80 mg tablet 80 mg PO QAM #90 tab 07/11/20 02/12/21 Rx apixaban 5 mg tablet (Eliquis) 5 mg PO BID #180 tab 11/11/20 02/12/21 Rx metformin 1,000 mg tablet 1,000 mg PO BID #180 tab 11/11/20 02/12/21 Rx nortriptyline 10 mg capsule 10 mg PO DAILY #90 cap 11/11/20 02/12/21 Rx hydrochlorothiazide 12.5 mg tablet 12.5 mg PO DAILY #90 tab 11/15/20 02/12/21 Rx pramipexole 0.125 mg tablet 0.125 mg PO .COMPLEX #270 tab 11/15/20 02/12/21 Rx (Mirapex) blood sugar diagnostic (OneTouch 12/30/20 12/30/20 History Verio test strips) metoprolol succinate 25 mg 25 mg PO DAILY #90 tab 01/03/21 02/12/21 Rx tablet,extended release 24 hr amlodipine 10 mg tablet 10 mg PO QAM #90 tab 02/09/21 02/12/21 Rx Past Med/Surg History Medical History Arthritis of knee, left Chronic kidney disease (CKD), stage III (moderate) GERD (gastroesophageal reflux disease) H/O: CVA (cerebrovascular accident) Hyperlipidemia Hypertension KYLE (iron deficiency anemia) Lagophthalmos Osteoarthritis Paroxysmal atrial fibrillation Restless leg syndrome Surgical History H/O cataract extraction (2019) b/l History of eye surgery R RETINA PROCEDURE History of total left knee replacement (TKR) History of total right knee replacement (TKR) S/P TKR (total knee replacement) Status post hysterectomy Status post right knee replacement Status post surgery cystocele repair Status post tubal ligation Family History Father Heart disease Diabetes mellitus, type II Myocardial infarction Mother Diabetes mellitus, type II Heart disease Myocardial infarction Aunt Breast cancer Denies family history of Ovarian cancer Prostate cancer Lung cancer Colorectal cancer Social History Smoking Status: Never smoker Hx Alcohol Use: No Hx Substance Use: No Preferred Language: Slovak Communication Ability: Effective Visual Impairment: No Limitations Hearing Ability: Normal [employer] Required: No Beliefs That Will Affect Care: None marital status: Current Living Situation: Spouse current occupational status: retired Feels Safe at Home: Yes Childhood Exposure to Second-Hand Smoke: No Diet Comment: regular caffeine: Yes during the past year weight has: increased > 10 lbs Dental Care, Regularly: Yes Physical Activity Frequency: Daily Seatbelt Use: always Sunscreen Use: Yes Assistive Devices: Glasses and Walker Review of Systems Constitutional: + fever, + chills, + sweats, + body aches, + fatigue, + malaise and + weakness Eyes: no blind spots and no diplopia Ear, Nose, Mouth, Throat: no ear pain and no ear trauma Respiratory: no cough and no change in sputum Cardiovascular: no chest pain and no chest pain with activity Gastrointestinal: no abdominal pain and no bloating Genitourinary: no dysuria Musculoskeletal: no back pain and no radicular pain Integumentary: no acne and no rash Neurologic: no gait abnormality and no falls Psychiatric: no behavioral changes Endocrine: no fatigue and no polydipsia Hematologic / Lymphatic: no easy bleeding Allergy / Immunological: no GI upset with certain foods Physical Exam Constitutional: WD/WN, vitals as above Eyes: PERRL, conjunctivae normal, anicteric sclerae ENMT: external ear and nose normal, oropharynx normal Neck: trachea midline, no thyromegaly Respiratory: normal respiratory effort and able to speak in complete sentences Auscultation: + diminished lung sounds Cardiovascular: RRR, no murmur, no edema Gastrointestinal (Abdomen): normal bowel sounds, soft, nontender, no hepatosplenomegaly Musculoskeletal: no cyanosis or clubbing, extremities motor strength 5/5 Skin: no rashes, warm and dry Neurologic: PERRL, EOMI, accommodation nl, no face palsy, no dysarthria Psychiatric: A+Ox3, euthymic affect Lymphatic: no cervical or axillary lymphadenopathy Results & Data Results & Data ([facility]) Vital Signs (Past 12 Hours) Vital Signs Temp Pulse Resp BP Pulse Ox 02/12/21 18:30 82 19 95 02/12/21 18:20 71 19 94 02/12/21 18:10 81 23 94 02/12/21 18:00 79 20 96 02/12/21 17:50 83 22 96 02/12/21 17:40 80 29 H 95 02/12/21 17:32 82 30 H 96 02/12/21 17:12 90 02/12/21 17:11 88 20 90 02/12/21 17:01 37.7 C H 91 H 20 158/66 H 93 PG Care Time/CCT Total # of Minutes Spent Total Time Spent with Patient: Total time spent is greater than 50% in coordination of care (as documented) at patient's floor/unit and/or counseling patient: Coding Level of Care Code 47280 Initial Inpt Care Lvl 3 Diagnoses COVID-19 U07.1 Diabetes mellitus type 2, uncontrolled, with complications E11.8; E11.65 Chronic kidney disease (CKD), stage III (moderate) N18.31 Chronic kidney disease stage 3 subtype: stage 3a (GFR 45-59) Hypertension I10 Hypertension type: essential hypertension Hyperlipidemia E78.2 Hyperlipidemia type: mixed hyperlipidemia Paroxysmal atrial fibrillation I48.0 Elevated troponin R77.8 (1) Chronic kidney disease (CKD), stage III (moderate) Chronic kidney disease stage 3 subtype: stage 3a (GFR 45-59) Qualified Code(s): N18.31 - Chronic kidney disease, stage 3a (2) Hypertension Hypertension type: essential hypertension Qualified Code(s): I10 - Essential (primary) hypertension (3) Hyperlipidemia Hyperlipidemia type: mixed hyperlipidemia Qualified Code(s): E78.2 - Mixed hyperlipidemia
[2021-02-12] MEDS ORDERED: ACETAMINOPHEN 325 MG TAB PO PRN (18:59)
[2021-02-12] MEDS ORDERED: ONDANSETRON INJ 2 MG/ML 2 ML VIAL IV PRN (18:59)
[2021-02-12] MEDS ORDERED: NYSTATIN POWDER 15GM BTL EXT PRN (19:06)
[2021-02-12] MEDS ORDERED: REMDESIVIR 200 MG in SODIUM CHLORIDE 0.9% 210 ML IV STA (19:13)
[2021-02-12] MEDS ORDERED: GLUCOSE 40% GEL 15 GM TUBE PO PRN (21:15)
[2021-02-12] MEDS ORDERED: DEXTROSE 50% 50 ML SYRINGE IV PRN (21:15)
[2021-02-12] MEDS ORDERED: GLUCOSE 10 TABS/TUBE PO PRN (21:15)
[2021-02-12] MEDS ORDERED: CARBOHYDRATES FOR HYPOGLYCEMIA PO PRN (21:15)
[2021-02-12] MEDS ORDERED: GLUCAGON FOR INJ 1 MG VIAL IM PRN (21:15)
[2021-02-12] MEDS: APIXABAN 5 MG TABLET PO SCH (21:57)
[2021-02-12] MEDS: PRAMIPEXOLE DIHYDROCHLO 0.25 MG TAB PO SCH (21:57)
[2021-02-12] MEDS: INSULIN DETEMIR FLEXPEN/FLEX TOUCH 100 UNITS/ML 3ML SQ SCH (22:03)
[2021-02-12] MEDS: INSULIN ASPART 100 UNITS/ML 3 ML PEN SC SCH (22:03)
[2021-02-12] MEDS ORDERED: PHARMACY GLYCEMIC MGMT CONSULT PRN (22:26)
[2021-02-13] MEDS: INSULIN ASPART 100 UNITS/ML 3 ML PEN SC SCH ×6 (02:29→22:00)
[2021-02-13 07:43] LABS: Hematocrit (blood only) 32.7 % (37-47); Hemoglobin 10.7 g/dL (12.0-16.0); Mean Corpuscular Hemoglobin 26.9 pg (25-34); Mean Corpuscular Hgb Conc 32.7 g/dL (32-36); Mean Corpuscular Volume 82.2 fL (80-100); Mean Platelet Volume 10.4 fL (7.4-10.4); Platelet Count 203 K/uL (130-400); RDW Coefficient of Variation 14.6 % (11.5-14.5); Red Blood Count 3.98 M/uL (4.2-5.4); White Blood Count 3.18 K/uL (4.8-10.8)
[2021-02-13 08:32] LABS: BUN Creatinine Ratio 20.1 (10-20); C Reactive Protein 9.44 mg/dl (0-0.29); Calcium 8.5 mg/dl (8.5-10.1); Creatinine Clr Calc Pharmacy 46.7 ml/min; Est GFR (African American) 46.4 ml/min; Potassium 4.2 mmol/L (3.5-5.1); Troponin I 0.066 ng/ml (0-0.045)
[2021-02-13 08:36] LABS: Estimated Average Glucose 174 mg/dl; Hemoglobin A1C 7.7 % (4.5-5.6)
[2021-02-13] MEDS ORDERED: INSULIN HUMAN NPH SC SCH (09:00)
[2021-02-13] MEDS: dexAMETHasone 6 MG in SYRINGE 0 ML IV SCH (09:03)
[2021-02-13] MEDS: ATORVASTATIN 40 MG TAB PO SCH (09:03)
[2021-02-13] MEDS: APIXABAN 5 MG TABLET PO SCH ×2 (09:04→21:46)
[2021-02-13] MEDS: amLODIPine BESYLATE 5 MG TAB PO SCH (09:04)
[2021-02-13] MEDS: CALCIUM 600MG + VIT D 400 IU TAB PO SCH (09:05)
[2021-02-13] MEDS: hydroCHLOROthiazide 25 MG TAB PO SCH (09:05)
[2021-02-13] MEDS: IRON POLYSACCHARIDE COMPLEX 150 MG CAPSULE PO SCH (09:06)
[2021-02-13] MEDS: lisinopril 20 MG TAB PO SCH (09:06)
[2021-02-13] MEDS: METOPROLOL SUCC 25MG EXT REL TAB PO SCH (09:06)
[2021-02-13] MEDS: ASPIRIN 81 MG ECTAB PO SCH (09:06)
[2021-02-13] MEDS: NORTRIPTYLINE HCL 10 MG CAP PO SCH (09:07)
[2021-02-13] MEDS: PRAMIPEXOLE DIHYDROCHLO 0.25 MG TAB PO SCH ×2 (09:07→21:46)
--- NOTE | 2021-02-13 09:26 | Pharmacy Report ---
Pharmacy Glycemic Short Note 2 - Date of Service February 13, 2021 - Glycemic Short BSG Results (Last 24 hours): 02/12/21 02/12/21 02/13/21 17:35 20:04 02:13 Glucose 48 L* POC Glucose 125 H 273 H 02/13/21 02/13/21 02/13/21 05:57 07:24 07:56 Glucose 274 H POC Glucose 275 H 276 H OUTPATIENT ANTIDIABETIC REGIMEN: * Levemir 36 units SC BID * Novolog 20 units SC TIDM * Metformin 1 g PO BIDM * HbA1c: 7.7% (02/13/21) ASSESSMENT: * RK is a 65 year old female admitted yesterday for inpatient treatment of COVID-19 pneumonia * Currently ordered dexamethasone 6 mg IV daily * Patient presented with low BSG (48 mg/dL), but unsurprisingly elevated overnight given dexamethasone with no additional insulin coverage * Reasonably controlled diabetes as an outpatient per A1c, will utilize aggressive insulin dosing given outpatient doses and IV steroids * Lunch BSG remained elevated (281 mg/dL), per RN, patient refused AM Novolog - will not overreact to this number PLAN FOR INPATIENT GLYCEMIC CONTROL: * Hold outpatient oral diabetes medications * Basal insulin * Levemir 36 units SQ BID * NPH 30 units SC daily with IV dexamethasone (~0.4 unit/kg of adjusted body weight) * Bolus insulin * NovoLog per scale ACHS or Q6hrs while NPO * Goal Range: Low 110 mg/dL - High 140 mg/dL * Correction Factor: 15 mg/dL/unit * Nutritional / Prandial insulin per carb ratio of 1 unit per 5 grams CHO consumed PLAN FOR DISCHARGE: * tbd
[2021-02-13] MEDS: INSULIN DETEMIR FLEXPEN/FLEX TOUCH 100 UNITS/ML 3ML SQ SCH ×2 (09:50→22:00)
--- NOTE | 2021-02-13 15:19 | Hospitalist Progress Note ---
Date of Service February 13, 2021 Assessment & Plan (1) COVID-19: Plan: rapidly improving she is fully vaccinated back in spring 2020 continue dexamethasone and Remdesivir admitted on 2L, now on room air if she remains on room air until tomorrow then discharge (2) Diabetes mellitus type 2, uncontrolled, with complications: Plan: will consult glycemic control Levemir BID, NPH in the morning, Novolog SS (3) Chronic kidney disease (CKD), stage III (moderate): Plan: acute kidney injury. Creatinine down to 1.3 no further IV fluids (4) Hypertension: Plan: resume home meds. above goal. (5) Hyperlipidemia: Plan: resume home meds (6) Paroxysmal atrial fibrillation: Plan: HR is rate controlled. will resume apixaban (7) Elevated troponin: Plan: trop is at 0.154 will check serial trop. likely demand ischemia. already on anticoagulation Plan: discharge tomorrow Admission and Anticipated Discharge Date Admission Date: February 12, 2021 Subjective patient doing great, down to room air this afternoon, breathing comfortably walking in the room no taste or smell but making herself eat no fever, minimal cough, no chest pain, no diarrhea Review of Systems Review of Systems: All systems reviewed & are unremarkable except as noted in Subjective Constitutional: no fever, no fatigue and no weakness Respiratory: + cough and + dyspnea on exertion (mild) Cardiovascular: no chest pain Gastrointestinal: no abdominal pain, no nausea, no vomiting, no constipation and no diarrhea/loose stools Physical Exam Physical Exam: General: well developed, well nourished, healthy appearing female, comfortable Neck: supple, trachea midline, normal thyroid Lungs: clear to auscultation bilaterally, normal respiratory effort, no accessory muscle use, no distress Heart: regular S1 and S2, no murmur, peripheral pulses normal, capillary refill normal, no edema Abdomen: soft, NT, ND, + BS, no hepatomegaly, normal to percussion Extremities: normal in appearance, no cyanosis, no petechiae, strength is 5/5 bilaterally Neuro: awake, cooperative, moves all extremities, no focal motor deficits, CN II-XII intact, sensation in extremities intact, normal speech Skin: warm, dry, no rash, normal turgor Psych: Awake, alert oriented x 3, euthymic affect Results & Data Results & Data ([facility]) Vital Signs (Past 12 Hours) Vital Signs Temp Pulse Pulse Resp BP BP Pulse Ox 02/13/21 15:08 68 02/13/21 12:09 36.6 C 79 16 174/76 H 95 02/13/21 08:05 36.8 C 79 18 167/74 H 98 02/13/21 07:17 94 H 02/13/21 05:24 36.7 C 74 20 153/71 H 98 Laboratory Results Laboratory Results - last 24 hr 02/12/21 02/12/21 02/12/21 17:35 17:35 17:35 WBC 3.06 L RBC 4.19 L Hgb 11.4 L Hct 34.8 L MCV 83.1 MCH 27.2 MCHC 32.8 RDW Std Deviation 45.6 RDW Coeff of Citlalli 14.9 H Plt Count 222 MPV 10.4 Immature Gran % (Auto) 0.0 Neut % (Auto) 69.6 Lymph % (Auto) 23.9 Carver % (Auto) 6.2 Eos % (Auto) 0.0 Baso % (Auto) 0.3 Neut # (Auto) 2.13 Lymph # (Auto) 0.73 L Carver # (Auto) 0.19 Eos # (Auto) 0.00 Baso # (Auto) 0.01 Immature Gran # (Auto) 0.00 APTT 37.4 H PTT Ratio 1.4 VBG pH VBG pCO2 VBG pO2 VBG HCO3 VBG O2 Saturation VBG Base Excess Barometric Pressure Sodium 137 Potassium 3.3 L Chloride 105 Carbon Dioxide 21 Anion Gap 10.0 BUN 22 H Creatinine 1.54 H Est Cr Clr Drug Dosing 42.8 Est GFR ( Amer) 40.6 Est GFR (Non-Af Amer) 35.0 BUN/Creatinine Ratio 14.0 Glucose 48 L* POC Glucose Estimat Average Glucose Hemoglobin A1c Calcium 8.7 Total Bilirubin 0.3 AST 39 H ALT 32 Alkaline Phosphatase 93 Troponin I 0.154 H* C-Reactive Protein Total Protein 7.6 Albumin 2.8 L Globulin 4.8 H Albumin/Globulin Ratio 0.6 L Lipase 278 Procalcitonin COVID-19 Eval Order SARS-CoV-2 (PCR) 02/12/21 02/12/21 02/12/21 17:35 17:56 18:29 WBC RBC Hgb Hct MCV MCH MCHC RDW Std Deviation RDW Coeff of Citlalli Plt Count MPV Immature Gran % (Auto) Neut % (Auto) Lymph % (Auto) Carver % (Auto) Eos % (Auto) Baso % (Auto) Neut # (Auto) Lymph # (Auto) Carver # (Auto) Eos # (Auto) Baso # (Auto) Immature Gran # (Auto) APTT PTT Ratio VBG pH 7.36 VBG pCO2 38 VBG pO2 91 VBG HCO3 21 VBG O2 Saturation 86.8 VBG Base Excess -3.9 Barometric Pressure 733.2 Sodium Potassium Chloride Carbon Dioxide Anion Gap BUN Creatinine Est Cr Clr Drug Dosing Est GFR ( Amer) Est GFR (Non-Af Amer) BUN/Creatinine Ratio Glucose POC Glucose Estimat Average Glucose Hemoglobin A1c Calcium Total Bilirubin AST ALT Alkaline Phosphatase Troponin I C-Reactive Protein Total Protein Albumin Globulin Albumin/Globulin Ratio Lipase Procalcitonin 0.26 COVID-19 Eval Order Covid19 at [facility] SARS-CoV-2 (PCR) 02/12/21 02/12/21 02/12/21 18:29 20:04 23:01 WBC RBC Hgb Hct MCV MCH MCHC RDW Std Deviation RDW Coeff of Citlalli Plt Count MPV Immature Gran % (Auto) Neut % (Auto) Lymph % (Auto) Carver % (Auto) Eos % (Auto) Baso % (Auto) Neut # (Auto) Lymph # (Auto) Carver # (Auto) Eos # (Auto) Baso # (Auto) Immature Gran # (Auto) APTT PTT Ratio VBG pH VBG pCO2 VBG pO2 VBG HCO3 VBG O2 Saturation VBG Base Excess Barometric Pressure Sodium Potassium Chloride Carbon Dioxide Anion Gap BUN Creatinine Est Cr Clr Drug Dosing Est GFR ( Amer) Est GFR (Non-Af Amer) BUN/Creatinine Ratio Glucose POC Glucose 125 H Estimat Average Glucose Hemoglobin A1c Calcium Total Bilirubin AST ALT Alkaline Phosphatase Troponin I 0.136 H* C-Reactive Protein Total Protein Albumin Globulin Albumin/Globulin Ratio Lipase Procalcitonin COVID-19 Eval Order SARS-CoV-2 (PCR) POSITIVE A* 02/13/21 02/13/21 02/13/21 02:13 05:57 07:24 WBC RBC Hgb Hct MCV MCH MCHC RDW Std Deviation RDW Coeff of Citlalli Plt Count MPV Immature Gran % (Auto) Neut % (Auto) Lymph % (Auto) Carver % (Auto) Eos % (Auto) Baso % (Auto) Neut # (Auto) Lymph # (Auto) Carver # (Auto) Eos # (Auto) Baso # (Auto) Immature Gran # (Auto) APTT PTT Ratio VBG pH VBG pCO2 VBG pO2 VBG HCO3 VBG O2 Saturation VBG Base Excess Barometric Pressure Sodium Potassium Chloride Carbon Dioxide Anion Gap BUN Creatinine Est Cr Clr Drug Dosing Est GFR ( Amer) Est GFR (Non-Af Amer) BUN/Creatinine Ratio Glucose POC Glucose 273 H 275 H Estimat Average Glucose 174 Hemoglobin A1c 7.7 H Calcium Total Bilirubin AST ALT Alkaline Phosphatase Troponin I C-Reactive Protein Total Protein Albumin Globulin Albumin/Globulin Ratio Lipase Procalcitonin COVID-19 Eval Order SARS-CoV-2 (PCR) 02/13/21 02/13/21 02/13/21 07:24 07:24 07:56 WBC 3.18 L RBC 3.98 L Hgb 10.7 L Hct 32.7 L MCV 82.2 MCH 26.9 MCHC 32.7 RDW Std Deviation 44.0 RDW Coeff of Citlalli 14.6 H Plt Count 203 MPV 10.4 Immature Gran % (Auto) Neut % (Auto) Lymph % (Auto) Carver % (Auto) Eos % (Auto) Baso % (Auto) Neut # (Auto) Lymph # (Auto) Carver # (Auto) Eos # (Auto) Baso # (Auto) Immature Gran # (Auto) APTT PTT Ratio VBG pH VBG pCO2 VBG pO2 VBG HCO3 VBG O2 Saturation VBG Base Excess Barometric Pressure Sodium 134 L Potassium 4.2 D Chloride 107 Carbon Dioxide 18 L Anion Gap 9.0 BUN 28 H Creatinine 1.38 H Est Cr Clr Drug Dosing 46.7 Est GFR ( Amer) 46.4 Est GFR (Non-Af Amer) 40.0 BUN/Creatinine Ratio 20.1 H Glucose 274 H POC Glucose 276 H Estimat Average Glucose Hemoglobin A1c Calcium 8.5 Total Bilirubin AST ALT Alkaline Phosphatase Troponin I 0.066 H* C-Reactive Protein 9.44 H Total Protein Albumin Globulin Albumin/Globulin Ratio Lipase Procalcitonin COVID-19 Eval Order SARS-CoV-2 (PCR) 02/13/21 02/13/21 11:48 15:12 WBC RBC Hgb Hct MCV MCH MCHC RDW Std Deviation RDW Coeff of Citlalli Plt Count MPV Immature Gran % (Auto) Neut % (Auto) Lymph % (Auto) Carver % (Auto) Eos % (Auto) Baso % (Auto) Neut # (Auto) Lymph # (Auto) Carver # (Auto) Eos # (Auto) Baso # (Auto) Immature Gran # (Auto) APTT PTT Ratio VBG pH VBG pCO2 VBG pO2 VBG HCO3 VBG O2 Saturation VBG Base Excess Barometric Pressure Sodium Potassium Chloride Carbon Dioxide Anion Gap BUN Creatinine Est Cr Clr Drug Dosing Est GFR ( Amer) Est GFR (Non-Af Amer) BUN/Creatinine Ratio Glucose POC Glucose 281 H Estimat Average Glucose Hemoglobin A1c Calcium Total Bilirubin AST ALT Alkaline Phosphatase Troponin I Pending C-Reactive Protein Total Protein Albumin Globulin Albumin/Globulin Ratio Lipase Procalcitonin COVID-19 Eval Order SARS-CoV-2 (PCR) Medications Administered Current Inpatient Medications Acetaminophen (Acetaminophen 325 Mg Tab) 650 mg PO Q4H PRN PRN Reason: pain/fever Stop: 03/14/21 18:58 Amlodipine Besylate (Amlodipine Besylate 5 Mg Tab) 10 mg PO QAM CAROL Stop: 03/15/21 08:59 Last Admin: 02/13/21 09:04 Dose: 10 mg Documented by: Apixaban (Apixaban 5 Mg Tablet) 5 mg PO BID [facility] Stop: 03/14/21 20:59 Last Admin: 02/13/21 09:04 Dose: 5 mg Documented by: Aspirin (Aspirin 81 Mg Ectab) 81 mg PO DAILY CAROL Stop: 03/15/21 08:59 Last Admin: 02/13/21 09:06 Dose: 81 mg Documented by: Atorvastatin Calcium (Atorvastatin 40 Mg Tab) 80 mg PO QAM CAROL Stop: 03/15/21 08:59 Last Admin: 02/13/21 09:03 Dose: 80 mg Documented by: Dextrose (Dextrose 50% 50 Ml Syringe) 25 - 50 ml IV UD PRN; Protocol PRN Reason: Hypoglycemia Protocol Stop: 03/14/21 21:14 Glucagon (Glucagon For Inj 1 Mg Vial) 1 mg IM UD PRN; Protocol PRN Reason: Hypoglycemia Protocol Stop: 03/14/21 21:14 Glucose (Glucose 40% Gel 15 Gm Tube) 15 - 30 gm PO UD PRN; Protocol PRN Reason: Hypoglycemia Protocol Stop: 03/14/21 21:14 Glucose (Glucose 10 Tabs/Tube) 4 - 8 tabs PO UD PRN; Protocol PRN Reason: Hypoglycemia Protocol Stop: 03/14/21 21:14 Hydrochlorothiazide (Hydrochlorothiazide 25 Mg Tab) 12.5 mg PO DAILY CAROL Stop: 03/15/21 08:59 Last Admin: 02/13/21 09:05 Dose: 12.5 mg Documented by: Remdesivir 100 mg/ Sodium (Chloride) 250 mls @ 250 mls/hr IV Q24H CAROL; Protocol Stop: 02/16/21 20:59 Dexamethasone 6 mg/ Syringe 1.5 mls @ 1 mls/min IV DAILY CAROL Stop: 02/21/21 09:02 Last Admin: 02/13/21 09:03 Dose: 1 mls/min Documented by: Insulin Aspart (Insulin Aspart 100 Units/Ml 3 Ml Pen) 0 units SC ACHS [facility] Stop: 03/14/21 20:59 Last Admin: 02/13/21 12:54 Dose: 17 units Documented by: Insulin Detemir (Insulin Detemir Flexpen/Flex Touch 100 Units/Ml 3ml) 36 units SQ BID [facility] Stop: 03/14/21 20:59 Last Admin: 02/13/21 09:50 Dose: 36 units Documented by: Insulin Human NPH (Insulin Human Nph) 30 units SC DAILY [facility] Stop: 03/15/21 08:59 Last Admin: 02/13/21 09:52 Dose: 30 units Documented by: Lisinopril (Lisinopril 20 Mg Tab) 20 mg PO DAILY [facility] Stop: 03/15/21 08:59 Last Admin: 02/13/21 09:06 Dose: 20 mg Documented by: Metoprolol Succinate (Metoprolol Succ 25mg Ext Rel Tab) 25 mg PO DAILY [facility] Stop: 03/15/21 08:59 Last Admin: 02/13/21 09:06 Dose: 25 mg Documented by: Miscellaneous (Carbohydrates For Hypoglycemia ) 15 - 30 gm PO UD PRN PRN Reason: Hypoglycemia Treatment Stop: 03/14/21 21:14 Miscellaneous Information (Pharmacy Glycemic Mgmt Consult) 1 ea N/A UD PRN PRN Reason: Consult Stop: 03/14/21 22:25 Multivitamins/Minerals (Calcium 600mg + Vit D 400 Iu Tab) 1 tab PO DAILY [facility] Stop: 03/15/21 08:59 Last Admin: 02/13/21 09:05 Dose: 1 tab Documented by: Nortriptyline HCl (Nortriptyline Hcl 10 Mg Cap) 10 mg PO DAILY CAROL Stop: 03/15/21 08:59 Last Admin: 02/13/21 09:07 Dose: 10 mg Documented by: Nystatin (Nystatin Powder 15gm Btl) 1 appln EXT TID PRN PRN Reason: Itching Stop: 03/14/21 19:05 Ondansetron HCl (Ondansetron Inj 2 Mg/Ml 2 Ml Vial) 4 mg IV Q6H PRN PRN Reason: Nausea Stop: 03/14/21 18:58 Polysaccharide Iron Complex (Iron Polysaccharide Complex 150 Mg Capsule) 150 mg PO DAILY CAROL Stop: 03/15/21 08:59 Last Admin: 02/13/21 09:06 Dose: 150 mg Documented by: Pramipexole Dihydrochloride (Pramipexole Dihydrochlo 0.25 Mg Tab) 0.25 mg PO QPM CAROL Stop: 03/14/21 20:59 Last Admin: 02/12/21 21:57 Dose: 0.25 mg Documented by: Pramipexole Dihydrochloride (Pramipexole Dihydrochlo 0.25 Mg Tab) 0.125 mg PO QAM CAROL Stop: 03/15/21 08:59 Last Admin: 02/13/21 09:07 Dose: 0.125 mg Documented by: Sodium Chloride (Sodium Chloride 0.9% 10ml Flush) 30 ml IV Q24H [facility] Stop: 02/16/21 20:01 PG Care Time/CCT Total # of Minutes Spent Total Time Spent with Patient: Total time spent is greater than 50% in coordination of care (as documented) at patient's floor/unit and/or counseling patient: Coding Level of Care Code 31774 Subseq Hosp Care Lvl 2 Diagnoses COVID-19 U07.1 Diabetes mellitus type 2, uncontrolled, with complications E11.8; E11.65 Chronic kidney disease (CKD), stage III (moderate) N18.31 Chronic kidney disease stage 3 subtype: stage 3a (GFR 45-59) Hypertension I10 Hypertension type: essential hypertension Hyperlipidemia E78.2 Hyperlipidemia type: mixed hyperlipidemia Paroxysmal atrial fibrillation I48.0 Elevated troponin R77.8 (1) Chronic kidney disease (CKD), stage III (moderate) Chronic kidney disease stage 3 subtype: stage 3a (GFR 45-59) Qualified Code(s): N18.31 - Chronic kidney disease, stage 3a (2) Hyperlipidemia Hyperlipidemia type: mixed hyperlipidemia Qualified Code(s): E78.2 - Mixed hyperlipidemia (3) Hypertension Hypertension type: essential hypertension Qualified Code(s): I10 - Essential (primary) hypertension
[2021-02-13] MEDS ORDERED: dexAMETHasone 6 MG in SYRINGE 0 ML IV SCH (18:00)
[2021-02-13] MEDS ORDERED: SODIUM CHLORIDE 0.9% 10ML FLUSH IV SCH (20:00)
[2021-02-13] MEDS ORDERED: REMDESIVIR 100 MG in SODIUM CHLORIDE 0.9% 230 ML IV SCH (20:00)
--- NOTE | 2021-02-14 04:49 | Electrocardiogram Report ---
Test Reason : Blood Pressure : / mmHG Vent. Rate : 083 BPM Atrial Rate : 083 BPM P-R Int : 148 ms QRS Dur : 084 ms QT Int : 388 ms P-R-T Axes : 013 -20 039 degrees QTc Int : 455 ms Sinus rhythm with marked sinus arrhythmia Minimal voltage criteria for LVH, may be normal variant Possible Anterior infarct (cited on or before 12-FEB-2021) Nonspecific ST abnormality Abnormal ECG When compared with ECG of 31-MAR-2018 11:54, No significant change was found Confirmed by Deandre Haro ([id number]) on 02/14/2021 4:49:14 AM Referred By: REFERRED SELF Confirmed By:Deandre Haro
[2021-02-14] MEDS: PRAMIPEXOLE DIHYDROCHLO 0.25 MG TAB PO SCH (08:42)
[2021-02-14] MEDS: NORTRIPTYLINE HCL 10 MG CAP PO SCH (08:43)
[2021-02-14] MEDS: METOPROLOL SUCC 25MG EXT REL TAB PO SCH (08:44)
[2021-02-14] MEDS: lisinopril 20 MG TAB PO SCH (08:44)
[2021-02-14] MEDS: IRON POLYSACCHARIDE COMPLEX 150 MG CAPSULE PO SCH (08:45)
[2021-02-14] MEDS: hydroCHLOROthiazide 25 MG TAB PO SCH (08:45)
[2021-02-14] MEDS: ATORVASTATIN 40 MG TAB PO SCH (08:46)
[2021-02-14] MEDS: CALCIUM 600MG + VIT D 400 IU TAB PO SCH (08:46)
[2021-02-14] MEDS: ASPIRIN 81 MG ECTAB PO SCH (08:47)
[2021-02-14] MEDS: APIXABAN 5 MG TABLET PO SCH (08:47)
[2021-02-14] MEDS: amLODIPine BESYLATE 5 MG TAB PO SCH (08:48)
[2021-02-14] MEDS: dexAMETHasone 6 MG in SYRINGE 0 ML IV SCH ×2 (08:59→10:17)
[2021-02-14] MEDS ORDERED: INSULIN HUMAN NPH SC SCH (09:00)
[2021-02-14] MEDS ORDERED: dexAMETHasone 1 MG TAB PO ONE (09:11)
[2021-02-14] MEDS: INSULIN ASPART 100 UNITS/ML 3 ML PEN SC SCH (09:13)
[2021-02-14] MEDS: INSULIN DETEMIR FLEXPEN/FLEX TOUCH 100 UNITS/ML 3ML SQ SCH (09:14)
--- NOTE | 2021-02-14 09:15 | Discharge Summary ---
Date of Service February 14, 2021 Admission HPI Per Admitting Provider 65 yo vaccinated (2 doses mRNA) female presents to the hospital with a 5 day history of feeling sick. She believes she may have gotten exposed with having a buffet at a restaurant in [place]. For the past 5 days, she has been having SOB accompanied by a non productive cough. This has gradually worsened. This has been accompanied by myalgias, weakness. She was tested on Saturday and was told Saturday that she was COVID-19+. Her is also sick at home but is improving. Principal Diagnosis COVID 19 pneumonia Acute hypoxic respiratory failure Discharge Exam General: well developed, well nourished, no acute distress, obese female, comfortable Neck: supple, trachea midline, normal thyroid Lungs: clear to auscultation bilaterally, normal respiratory effort, no accessory muscle use, no distress Heart: regular S1 and S2, no murmur, peripheral pulses normal, capillary refill normal, no edema Abdomen: soft, NT, ND, + BS, no hepatomegaly, normal to percussion Extremities: normal in appearance, no cyanosis, no petechiae, strength is 5/5 bilaterally Neuro: awake, cooperative, moves all extremities, no focal motor deficits, CN II-XII intact, sensation in extremities intact, normal speech Skin: warm, dry, no rash, normal turgor Psych: Awake, alert oriented x 3, euthymic affect Discharge Data Allergies Allergy/AdvReac Type Severity Reaction Status Date / Time celecoxib Allergy Unknown due to Verified 02/12/21 18:45 stroke unable to take NSAIDS (Non-Steroidal Allergy Unknown unable to Verified 02/12/21 18:45 Anti-Inflamma take due to stroke salicylates Allergy Unknown Unknown Verified 02/12/21 23:52 Consultations 02/12/21 18:41 ED Decision to Admit Stat Hospital Course (1) COVID-19: rapidly improved she is fully vaccinated back in spring 2020 treated with dexamethasone and Remdesivir while admitted, got 3 doses of dexamethasone and 2 doses of Remdesivir admitted on 2L, quickly down to room air in less than 24 hours, stable on room air for 36 hours lungs clear, no cough, no labored breathing discharge home on dexamethasone 6mg PO daily x 2 more days (5 days total) instructed to monitor for any worsening dyspnea, get a finger pulse oximeter to make sure saturations are > 88% on room air stay in isolation 14 days from onset of symptoms (2) Diabetes mellitus type 2, uncontrolled, with complications: Levemir BID, NPH in the morning, Novolog SS will resume Metformin on discharge no need for NPH as oral dexamethasone will have less of hyperglycemic effect and only for 2 days (3) Chronic kidney disease (CKD), stage III (moderate): acute kidney injury, resolved Creatinine down to 1.3 no further IV fluids (4) Hypertension: resume home meds. above goal. (5) Hyperlipidemia: resume home meds (6) Paroxysmal atrial fibrillation: HR is rate controlled. continue apixaban (7) Elevated troponin: no chest pain likely demand ischemia in setting of COVID, hypoxia already on anticoagulation discharge to home Total Time Total Time Spent Total Time Spent (In Minutes): 31 Total Time Includes: Examination of the Patient, Discharge Planning and Medication Reconciliation Discharge Plan Discharge Items Patient Disposition: Home - Self-Care Reason For Visit: COVID 19 Discharge Diagnosis: COVID 19 Acute hypoxic respiratory failure, resolved Condition on Discharge: Good Goals: complete short course of dexamethasone stay well nourished, well hydrated Activity: Resume your previous activity Driving/Machine Use: No limitations Weightbearing: Full weightbearing Non-emergency contact: Primary Care Provider Call non-emergency contact if: you have any medication questions, your symptoms worsen and you have a fever Follow-up/Referrals: Zelda Smith DO [Primary Care Provider] - (one week) Diet: Carb Consistent or DM2 Addtl Attending Provider Instructions: Medications: - DEXAMETHASONE: 6mg daily for 2 more days, start tomorrow morning COVID 19, mild hypoxia (resolved yesterday) likely that the vaccine is reducing symptoms as intended on room air since yesterday please continue dexamethasone for 2 more days each stay well nourished, well hydrated follow up with PCP in a week recommended that you stay in isolation 14 days from initial symptoms monitor for any worsening shortness of breath, you can get a finger pulse oximeter to check oxygen levels oxygen saturations should be greater than 88% on room air if you start to become more hypoxic (<88%) then return to the emergency room for evaluation DM type II: follow low carbohydrate diet, resume Metformin, take Levemir and Novolog as prescribed Pending Studies at Discharge: No Stand-Alone Forms: [employer], Smoking Cessation Medications and DC Order Prescriptions: New dexamethasone 4 mg tablet 6 mg PO DAILY 2 Days Qty: 3 RF: 0 Continued acetaminophen [Pain Reliever (acetaminophen)] 500 mg tablet 1,000 mg PO Q8 PRN (Reason: pain) RF: 0 amoxicillin 500 mg capsule 2,000 mg PO ONCE PRN (Reason: 30-60 min prior to dental care) Qty: 4 RF: 1 Levemir FlexTouch U-100 Insuln 100 unit/mL (3 mL) insulin pen 36 unit SUBCUT BID Qty: 75 RF: 3 lisinopril 20 mg tablet 20 mg PO DAILY Qty: 90 RF: 1 atorvastatin 80 mg tablet 80 mg PO QAM Qty: 90 RF: 2 nortriptyline 10 mg capsule 10 mg PO DAILY Qty: 90 RF: 1 Eliquis 5 mg tablet 5 mg PO BID Qty: 180 RF: 1 metformin 1,000 mg tablet 1,000 mg PO BID Qty: 180 RF: 3 pramipexole [Mirapex] 0.125 mg tablet 0.125 mg PO .COMPLEX Qty: 270 RF: 1 hydrochlorothiazide 12.5 mg tablet 12.5 mg PO DAILY Qty: 90 RF: 1 metoprolol succinate 25 mg tablet extended release 24 hr 25 mg PO DAILY Qty: 90 RF: 1 amlodipine 10 mg tablet 10 mg PO QAM Qty: 90 RF: 1 aspirin [Aspirin Low Dose] 81 mg tablet,delayed release (DR/EC) 81 mg PO DAILY Qty: 90 RF: 3 (DME) OneTouch Verio test strips Strip See Rx Instructions .ROUTE RF: 0 (DME) insulin syringe-needle U-100 [BD Insulin Syringe Ultra-Fine] 0.5 mL 31 gauge x 5/16" syringe See Rx Instructions .ROUTE .MEDSUPPLY Qty: 3 RF: 6 (DME) pen needle, diabetic [BD Ultra-Fine Mini Pen Needle] 31 gauge x 3/16" needle See Rx Instructions .ROUTE .MEDSUPPLY Qty: 2 RF: 6 Novolog U-100 Insulin aspart 100 unit/mL solution 20 unit SUBCUT TID Qty: 6 RF: 6 (DME) lancets [OneTouch UltraSoft Lancets] misc See Dose Instructions .ROUTE .MEDSUPPLY Qty: 50 RF: 0 calcium carbonate-vitamin D3 500 mg(1,250mg) -400 unit tablet 1 tab PO DAILY RF: 0 Centrum Silver Women 8 mg iron-400 mcg-300 mcg Tablet 1 tab PO DAILY RF: 0 polysaccharide iron complex [Ferrex 150] 150 mg iron Capsule 150 mg PO DAILY RF: 0 nystatin 100,000 unit/gram Powder 1 applic TOPICAL TID PRN (Reason: Itching) RF: 0 Discharge Orders: Discharge Order (Routine); Ordered 02/14/21 Ordered By: Wolf Cuenca/Other Patient Handouts: Hypoglycemia (Low Blood Sugar), Managing Type 2 Diabetes Admission Data Admit Date/Time: 02/12/21 21:34 Attending Provider: Wofl Rowland Admit Provider: Dexter Wilkes Primary Care Provider: Zelda Smith Other Providers: Kee Pham Coding Level of Care Code D/C DAY MANAGEMENT >30 MINS Diagnoses COVID-19 U07.1 Diabetes mellitus type 2, uncontrolled, with complications E11.8; E11.65 Chronic kidney disease (CKD), stage III (moderate) N18.31 Chronic kidney disease stage 3 subtype: stage 3a (GFR 45-59) Hypertension I10 Hypertension type: essential hypertension Hyperlipidemia E78.2 Hyperlipidemia type: mixed hyperlipidemia Paroxysmal atrial fibrillation I48.0 Elevated troponin R77.8
== END 2021-02-14 11:41 | disposition home or self-care (01) ==
LOC: ED 16:48 → INTOOBSV 21:34 → 2N 21:34 → SUATTDRO 21:34 → 2N 21:50